=== PATIENT | male | born 1985 | race Caucasian/White ===

== ENCOUNTER → 2017-08-11 | Outpatient (CLI) | payer BC ==
[~2017-08-11] MED LIST: LEVO50TA PO
[2017-08-11 14:39] LABS: BASO % 0.6 %; BASO ABS # 0.03 K/uL (0-0.2); COMPLETE YES; EOS % 2.9 %; HEMATOCRIT 42.5 % (42-52); IG% 0.2 %; LYMPH % 46.9 %; LYMPH ABS # 2.26 K/uL (1.2-3.4); MEAN CELL VOLUME 87.6 fL (80-100); MEAN CORPUSCULAR HEMOGLOBIN 30.5 pg (25-34); MEAN CORPUSCULAR HGB CONC 34.8 g/dl (32-36); MEAN PLATELET VOLUME 10.1 fL (7.4-10.4); NEUT % 43.4 %; PLATELET COUNT 231 K/uL (130-400); RED BLOOD COUNT 4.85 M/uL (4.7-6.1); WHITE BLOOD COUNT 4.82 K/uL (4.8-10.8)
[2017-08-11 15:07] LABS: BLOOD UREA NITROGEN 12 mg/dl (7-18); BUN/CREATININE RATIO 13.1 (10-20); CALCIUM 9.2 mg/dl (8.5-10.1); CARBON DIOXIDE 29 mmol/L (21-32); CHLORIDE 105 mmol/L (98-107); CREATININE 0.93 mg/dl (0.60-1.40); GLUCOSE 98 mg/dl (70-99); POTASSIUM 3.6 mmol/L (3.5-5.1); SODIUM 140 mmol/L (136-145)
[2017-08-11 15:12] LABS: ALB/GLOB RATIO 1.1 (0.9-2); ALKALINE PHOSPHATASE 51 U/L (45-117); ALT/SGPT 190 U/L (12-78); AST/SGOT 83 U/L (15-37); FERRITIN 505.7 ng/ml (8.0-388.0)
[2017-08-12 04:43] LABS: ESTIMATED AVERAGE GLUCOSE 111 mg/dl; HA1C FLAG Normal (Normal)
[2017-08-16 23:38] LABS: T3 REVERSE **TC 90963 27 ng/dL (8-25)
--- NOTE | 2017-08-25 10:23 | CODING QUERY MEDICAL NECESSITY ---
CQSUPPORTING DIAGNOSIS NEEDED A supporting diagnosis is required for the test/procedure performed on this patient in order for us to be reimbursed by the patient's insurance. Please provide a supporting diagnosis for the following test/procedure listed below next to the test name along with your signature. *If there is no additional diagnosis for this patient that would support the following test/procedure please document that below next to the test/procedure. Test(s)/Procedure(s) that require a supporting diagnosis: CARLI 08/11/17 GLYCATEDHEMOGLOBIN TEST SERUM IRON STUDY Provider Signature: Date: Thank you Garden[facility] Information [facility] Once completed, please kindly fax back to [phone] For questions please call [phone]
== END | disposition home or self-care (01) ==
LOC: C.LAB 14:01
PROVIDERS: ATTEND Chiropractor
DX: M79.1 Myalgia (principal); E89.0 Postprocedural hypothyroidism

== ENCOUNTER → 2018-01-13 | Outpatient (CLI) | payer OTHER | END | disposition home or self-care (01) | LOC: C.LAB1850 15:09 | PROVIDERS: ATTEND Physician Assistant | DX: E89.0 Postprocedural hypothyroidism (principal) ==

== ENCOUNTER 2019-06-12 11:10 | Inpatient (IN) ==
--- OUTSIDE RECORDS SUMMARY | 2019-06-12 11:14 | External Medical Summary | Continuity of Care Document ---
:1985 Author Name Marissa Lopez, Provider Address Unavailable Unavailable , Care Team Providers Name Role Phone Unavailable Unavailable Unavailable Madison TAPIA, Rj Unavailable 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 Refills: 0 Albuterol Sulfate (2.5 MG/3ML) 0.083% In halation Nebulization Solution; USE DIRECTED. , M.D. Refills: 0 Tirosint 150 MCG Oral Capsule; Take one tablet daily on an empty stomach with a glass of water 30-60 minutes before any other food, drinks or medications. WILLIE Wallace Start: 22-Jul-2016 Quantity: 90 Refills: 3 Procedures History of Dental Surgery Status: Comple parth History of Nasal Septal Deviation Repair Status: Completed History of Thyroid Surgery George-Thyroidectomy Left Lobe Status: Completed Immunizations Tdap (Adacel) On: 22-Sep-2011 Family History Mother Family history of celiac disease (V18.59) (Z83.79) Status: A ctive Sister Family history of celiac disease (V18.59) (Z83.79) Status: A ctive Father Family history of diabetes mellitus (V18.0) (Z83.3) Status: Active Family history of hypertension (V17.49) (Z82.49) Status: Act hong Unknown Family Member Family history of malignant neoplasm of brain Status: Active Comments: Family History (V16.8) (Z80.8) Family history of lung cancer (V16.1) (Z80.1) Status: Active Comments: Family History Social History - Smoking Status Never smoker Plan of Treatment Planned Observations Planned Goals not documented Results No Known Results Results not documented Encounters Appointment; Rj Wallace PA-C 13-Jan-2018 14:10 Encounter Diagnosis: Problem not documented Appointment; Rj Wallace PA-C 13-Jul-2017 9:50 Encounter Diagnosis: Problem not documented Appointment; Rj Wallace PA-C 23-Jun-2017 8:30 Encounter Diagnosis: Problem not documented
[2019-06-12] MEDS ORDERED: METOPROLOL TARTRATE 1 MG/ML VIAL IV PRN ×2 (11:29→13:24)
[2019-06-12] MEDS ORDERED: SODIUM CHLORIDE 0.9% 1000ML 1,000 ML IV SCH (11:30)
[2019-06-12 11:47] LABS: Basophils # (auto) 0.03 K/uL (0-0.2); Basophils % (auto) 0.4 %; Eosinophils # (auto) 0.12 K/uL (0-0.5); Eosinophils % (auto) 1.4 %; Hemoglobin 16.6 g/dL (14.0-18.0); Immature Granulocytes # (auto) 0.01 K/uL (0.00-0.02); Immature Granulocytes % (auto) 0.1 %; Lymphocytes # (auto) 3.13 K/uL (1.2-3.4); Lymphocytes % (auto) 36.7 %; Mean Corpuscular Hgb Conc 36.1 g/dL (32-36); Mean Corpuscular Volume 86.3 fL (80-100); Mean Platelet Volume 10.4 fL (7.4-10.4); Monocytes # (auto) 0.61 K/uL (0.11-0.59); Monocytes % (auto) 7.2 %; Neutrophils # (auto) 4.62 K/uL (1.4-6.5); Neutrophils % (auto) 54.2 %; Platelet Count 225 K/uL (130-400); RDW Coefficient of Variation 12.3 % (11.5-14.5); RDW Standard Deviation 38.9 fL (36.4-46.3); Red Blood Count 5.33 M/uL (4.7-6.1); White Blood Count 8.52 K/uL (4.8-10.8)
--- NOTE | 2019-06-12 11:50 | XRay Report ---
XR chest 1V portable HISTORY: 34 years-old Male Chest Pain acute atypical chest pain COMPARISON: Chest radiograph 05/10/2016 TECHNIQUE: Portable AP view of the chest FINDINGS: Cardiomediastinal and hilar silhouettes are within normal limits. Unchanged mild right hemidiaphragma tic elevation. No pneumothorax, pleural effusion, focal airspace consolidation or overt pulmonary richard ma. Bones of the chest appear grossly intact. IMPRESSION: No acute process. The above report was generated using voice recognition software. It may contain grammatical, syntax o r spelling errors. Electronically signed by: Wyatt Allison M.D. 06/12/2019 11:49 AM
[2019-06-12 12:03] LABS: Alanine Aminotransferase 46 U/L (12-78); Albumin Level 5.1 gm/dl (3.4-5.0); Aspartate Aminotransferase 26 U/L (15-37); Blood Urea Nitrogen 12 mg/dl (7-18); Calcium 9.3 mg/dl (8.5-10.1); Carbon Dioxide 23 mmol/L (21-32); Chloride 100 mmol/L (98-107); Creatinine Clr Calc Pharmacy 119.6 ml/min; Est GFR (African American) 103.7; Est GFR (Non-African American) 89.5; Glucose 81 mg/dl (70-99); Potassium 3.2 mmol/L (3.5-5.1); Sodium 138 mmol/L (136-145)
[2019-06-12 12:08] LABS: Albumin Globulin Ratio 1.5 (0.9-2); Alkaline Phosphatase 53 U/L (45-117); Bilirubin,Total 1.4 mg/dl (0.2-1); Creatine Kinase 330 U/L (39-308); Creatine Kinase MB < 1.0 ng/ml (0.5-3.6); Globulin 3.4 gm/dl (2.5-4.0); Total Protein 8.5 gm/dl (6.4-8.2); Troponin I 0.019 ng/ml (0-0.045)
[2019-06-12] MEDS ORDERED: POTASSIUM CHLORIDE 20 MEQ TABCR PO STA ×2 (12:09→13:24)
[2019-06-12] MEDS: POTASSIUM CHLORIDE / WTR 10 MEQ/100 ML PLCT IV SCH ×2 (12:14→13:50)
[2019-06-12] MEDS ORDERED: FAMOTIDINE 20 MG TAB PO STA (12:22)
[2019-06-12] MEDS ORDERED: ONDANSETRON INJ 2 MG/ML 2 ML VIAL IV STA (12:22)
[2019-06-12] MEDS ORDERED: GI COCKTAIL ED USE PO ONE (12:22)
[2019-06-12 13:19] LABS: INR 1.1 (0.9-1.1); Partial Thromboplastin Time 27.6 Seconds (21.0-31.0); Prothrombin Time 11.4 Seconds (9.0-12.0)
--- NOTE | 2019-06-12 13:21 | History & Physical Report ---
Date of Service June 12, 2019 Assessment & Plan (1) Atrial fibrillation with RVR: Presented with palpitation and noted to have atrial fibrillation with RVR History of atrial fibrillation with spontaneous reversion to sinus rhythm Did have some chest pain/pressure during this presentation We will start with intravenous beta-sarah as needed to control the rate Initial troponin negative Will get serial cardiac enzymes Echocardiogram to evaluate function Cardiology consult Present on Admission?: Yes (2) Celiac disease: History of celiac disease under care of [facility] guidance services coordinator Recently has been following the diet Continuing to have diarrhea We will put him on a gluten-free diet (3) Electrolyte imbalance: Secondary to ongoing diarrhea Potassium has been placed Atrial fibrillation in the hospital Present on Admission?: Yes (4) Hypothyroidism: Placement DVT prophylaxis SCDs CODE STATUS Full History of Present Illness Chief Complaint: Diarrhea for the last 1 week and palpitations since this morning Primary Care Provider: [facility] He is a 34-year-old male without significant past medical history except hypothyroidism and celiac disease apparently has been complaining of ongoing diarrhea for the last 1 week or so secondary to dietary discretion. He has been losing weight secondary to ongoing diarrhea and since this morning he complained to have palpitation associated with some chest tightness and minimal shortness of breath. He complained of some abdominal discomfort, but no pain and did not have any nausea and/or vomiting. He complains to have significant weight loss for the last 1 to 2 weeks. He has a history of proximal atrial fibrillation and during the last 10 years he has had 2 or 3 episodes of atrial fibrillation and all of which converted to sinus rhythm by itself. He had an echo done about 10 years ago which was unremarkable as per the patient. His celiac disease seems to be under control but recently while in the nursing home he has been following with the diet that he supposed to be which is causing him to have ongoing diarrhea and weight loss. The ER he was noted to have low blood pressure of systolic less than 90 and a heart rate of 107. His initial troponin was negative, he was admitted to telemetry unit for continuation of care. 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 Industrial Required: No Beliefs That Will Affect Care: None Current Living Situation: Other Feels Safe at Home: Yes Safety Concerns: Feels Safe At This Time Smoking Status: Never smoker Hx Alcohol Use: No Hx Substance Use: No Review of Systems Review of Systems: All systems reviewed & are unremarkable except as noted in HPI & below Physical Exam Physical Exam: No apparent distress at rest Constitutional: well developed and well nourished Eyes: PERRL, conjunctivae normal, anicteric sclerae ENMT: external ear and nose normal, oropharynx normal Neck: trachea midline, no thyromegaly Respiratory: normal respiratory effort; no respiratory distress Auscultation: lungs clear to auscultation bilaterally Cardiovascular: Rate/Rhythm: + tachycardic; + abnormal rate and + abnormal rhythm Gastrointestinal (Abdomen): Inspection/Auscultation: abdomen normal to inspection Percussion/Palpation: + abdomen tender (Mildly tender epigastrium) and abdomen soft; no guarding, abdomen not rigid and no hepatosplenomegaly Musculoskeletal: No acute arthritis in any joints Skin: Minor patch of dry skin lesions behind the elbows Neurologic: patellar DTR's 2+ bilat, sensation intact Psychiatric: A+Ox3, euthymic affect Genitourinary: no CVA tenderness Lymphatic: no cervical or axillary lymphadenopathy Results & Data Vital Signs (Past 12 Hours) Vital Signs Temp Pulse Resp BP Pulse Ox 06/12/19 12:01 107 H 16 86/70 L 97 06/12/19 12:00 169 H 22 06/12/19 11:59 160 H 151/84 H 06/12/19 11:50 168 H 18 94 06/12/19 11:40 154 H 15 98 06/12/19 11:31 170 H 14 151/84 H 96 06/12/19 11:30 158 H 23 95 06/12/19 11:28 173 H 18 98 06/12/19 11:20 171 H 24 98 06/12/19 11:19 172 H 22 06/12/19 11:15 36.6 C 162 H 21 166/91 H 98 Laboratory Results Short CBC 06/12/19 Range/Units 11:38 WBC 8.52 (4.8-10.8) K/uL Hgb 16.6 (14.0-18.0) g/dL Hct 46.0 (42-52) % Plt Count 225 (130-400) K/uL BMP 06/12/19 11:38 Sodium 138 Potassium 3.2 L Chloride 100 Carbon Dioxide 23 BUN 12 Creatinine 1.07 Glucose 81 Calcium 9.3 Cardiac Enzymes 06/12/19 Range/Units 11:38 Total Creatine Kinase 330 H (39-308) U/L CK-MB (CK-2) < 1.0 (0.5-3.6) ng/ml Troponin I 0.019 (0-0.045) ng/ml Liver Function 06/12/19 Range/Units 11:38 Total Bilirubin 1.4 H (0.2-1) mg/dl AST 26 (15-37) U/L ALT 46 (12-78) U/L Alkaline Phosphatase 53 (45-117) U/L Albumin 5.1 H (3.4-5.0) gm/dl Medications Administered Current Inpatient Medications Potassium Chloride (K Vini / Wtr) 10 meq in 100 mls @ 100 mls/hr IV Q1H [id number] Stop: 06/12/19 14:14 Last Admin: 06/12/19 12:14 Dose: 100 mls/hr Documented by: Metoprolol Tartrate (Lopressor) 5 mg IV Q5M PRN PRN Reason: Tachycardia Stop: 07/12/19 11:28 Last Admin: 06/12/19 11:59 Dose: 5 mg Documented by:
--- NOTE | 2019-06-12 14:58 | Emergency Department Note ---
Entered by Lorena Orozco acting as a scribe for Miguel Armenta MD History of Present Illness General Chief complaint: Arrhythmia/Palpitations Time Seen by Provider: 06/12/19 11:19 Source: patient History of Present Illness Provider complaint: palpitations Onset (ago): hour(s) (this morning ) Location: chest Severity: similar to prior episodes Pain Consistency: + other (episode) Associated symptoms: + chest pain and + shortness of breath The patient is a 34 year old male who presents to the Emergency Room with complaints of episode of palpitations this morning. The patient states that he woke up this morning and he felt a "flutter" in his chest. He reports that he has a history of atrial fibrillation, he notes that his last episode was 10 year s ago. The patient states that he is experiencing chest pain and shortness of breath. He notes that he was in the ED for similar symptoms where the docket clerk believed his A fib was due to his celiac disease. He states that when he was here he was cardioverted. He notes that he has a history of hy pothyroidism. He states that he is a nonsmoker. Home Medications Home Medications Medication Instructions Recorded Confirmed Type cetirizine 10 mg PO HS 06/12/19 06/12/19 History cholecalciferol (vitamin D3) 2,000 unit PO HS 06/12/19 06/12/19 History [Vitamin D3] levothyroxine 125 mcg PO QAM 06/12/19 06/12/19 History naproxen 375 mg PO BID PRN 06/12/19 06/12/19 History Allergies Allergy/AdvReac Type Severity Reaction Status Date / Time gluten Allergy Unknown GLUTEN Verified 06/12/19 11:24 SENSITIVITY Past Med/Surg History Medical History Hypothyroidism (Chronic) Atrial fibrillation Celiac disease GERD (gastroesophageal reflux disease) HLD (hyperlipidemia) Social History Preferred Language: Latvian [employer] Specialist Required: No Beliefs That Will Affect Care: None Current Living Situation: Other Feels Safe at Home: Yes Safety Concerns: Feels Safe At This Time Smoking Status: Never smoker Hx Alcohol Use: No Hx Substance Use: No Review of Systems See HPI for pertinent positives & negatives. and A total of 10 systems reviewed and were otherwise negative Physical Exam Vital Signs Vital Signs - 24 hr 06/12/19 11:15 06/12/19 11:19 06/12/19 11:20 Temperature 36.6 C Temperature Source Oral Sepsis Recent Fever Within 48 Hours No Sepsis New/Unexplained Change in Mental Status No Sepsis Action Taken by Nursing No Action Required Pulse Rate 162 H 172 H 171 H Pulse Rate from SpO2 Sensor 156 H Pulse Rhythm Irregular Pulse Strength Normal Respiratory Rate 21 22 24 Respiratory Effort / Characteristics Non-Labored Spontaneous Respiratory Depth Normal Respiratory Pattern Regular Blood Pressure 166/91 H Blood Pressure Mean 116 Blood Pressure Position Lying Pulse Oximetry 98 98 Oxygen Delivery Method Room Air Room Air Room Air 06/12/19 11:28 06/12/19 11:30 06/12/19 11:31 Temperature Temperature Source Sepsis Recent Fever Within 48 Hours Sepsis New/Unexplained Change in Mental Status Sepsis Action Taken by Nursing Pulse Rate 173 H 158 H 170 H Pulse Rate from SpO2 Sensor 92 H 139 H Pulse Rhythm Pulse Strength Respiratory Rate 18 23 14 Respiratory Effort / Characteristics Respiratory Depth Respiratory Pattern Blood Pressure 151/84 H Blood Pressure Mean 106 Blood Pressure Position Pulse Oximetry 98 95 96 Oxygen Delivery Method Room Air Room Air Room Air 06/12/19 11:40 06/12/19 11:50 06/12/19 11:59 Temperature Temperature Source Sepsis Recent Fever Within 48 Hours Sepsis New/Unexplained Change in Mental Status Sepsis Action Taken by Nursing Pulse Rate 154 H 168 H 160 H Pulse Rate from SpO2 Sensor 89 117 H Pulse Rhythm Pulse Strength Respiratory Rate 15 18 Respiratory Effort / Characteristics Respiratory Depth Respiratory Pattern Blood Pressure 151/84 H Blood Pressure Mean Blood Pressure Position Pulse Oximetry 98 94 Oxygen Delivery Method Room Air Room Air 06/12/19 12:00 06/12/19 12:01 06/12/19 12:02 Temperature Temperature Source Sepsis Recent Fever Within 48 Hours Sepsis New/Unexplained Change in Mental Status Sepsis Action Taken by Nursing Pulse Rate 169 H 107 H 107 H Pulse Rate from SpO2 Sensor 82 81 Pulse Rhythm Pulse Strength Respiratory Rate 22 16 13 Respiratory Effort / Characteristics Respiratory Depth Respiratory Pattern Blood Pressure 86/70 L Blood Pressure Mean 75 Blood Pressure Position Pulse Oximetry 97 99 Oxygen Delivery Method Room Air Room Air 06/12/19 12:08 06/12/19 12:10 06/12/19 12:11 Temperature Temperature Source Sepsis Recent Fever Within 48 Hours Sepsis New/Unexplained Change in Mental Status Sepsis Action Taken by Nursing Pulse Rate 122 H 92 H 122 H Pulse Rate from SpO2 Sensor 86 80 83 Pulse Rhythm Pulse Strength Respiratory Rate 14 10 L 14 Respiratory Effort / Characteristics Respiratory Depth Respiratory Pattern Blood Pressure 99/78 L 100/75 Blood Pressure Mean 85 83 Blood Pressure Position Pulse Oximetry 94 99 97 Oxygen Delivery Method 06/12/19 12:15 06/12/19 12:20 06/12/19 12:21 Temperature Temperature Source Sepsis Recent Fever Within 48 Hours Sepsis New/Unexplained Change in Mental Status Sepsis Action Taken by Nursing Pulse Rate 116 H 116 H 123 H Pulse Rate from SpO2 Sensor 91 H 97 H 89 Pulse Rhythm Pulse Strength Respiratory Rate 19 17 31 H Respiratory Effort / Characteristics Respiratory Depth Respiratory Pattern Blood Pressure 113/86 113/75 Blood Pressure Mean 95 87 Blood Pressure Position Pulse Oximetry 98 100 99 Oxygen Delivery Method 06/12/19 12:25 06/12/19 12:30 06/12/19 12:31 Temperature Temperature Source Sepsis Recent Fever Within 48 Hours Sepsis New/Unexplained Change in Mental Status Sepsis Action Taken by Nursing Pulse Rate 112 H 108 H 115 H Pulse Rate from SpO2 Sensor 83 101 H 86 Pulse Rhythm Pulse Strength Respiratory Rate 16 20 18 Respiratory Effort / Characteristics Respiratory Depth Respiratory Pattern Blood Pressure 80/71 L 137/86 Blood Pressure Mean 74 103 Blood Pressure Position Pulse Oximetry 95 97 97 Oxygen Delivery Method 06/12/19 12:35 06/12/19 12:40 06/12/19 12:41 Temperature Temperature Source Sepsis Recent Fever Within 48 Hours Sepsis New/Unexplained Change in Mental Status Sepsis Action Taken by Nursing Pulse Rate 136 H 121 H 126 H Pulse Rate from SpO2 Sensor 99 H 92 H Pulse Rhythm Pulse Strength Respiratory Rate 12 14 15 Respiratory Effort / Characteristics Respiratory Depth Respiratory Pattern Blood Pressure 106/82 125/87 Blood Pressure Mean 90 99 Blood Pressure Position Pulse Oximetry 95 94 Oxygen Delivery Method 06/12/19 12:45 06/12/19 12:50 Temperature Temperature Source Sepsis Recent Fever Within 48 Hours Sepsis New/Unexplained Change in Mental Status Sepsis Action Taken by Nursing Pulse Rate 125 H 133 H Pulse Rate from SpO2 Sensor 83 83 Pulse Rhythm Pulse Strength Respiratory Rate 15 14 Respiratory Effort / Characteristics Respiratory Depth Respiratory Pattern Blood Pressure 136/84 106/75 Blood Pressure Mean 101 85 Blood Pressure Position Pulse Oximetry 93 98 Oxygen Delivery Method GENERAL: Awake, alert, well-appearing, in no acute distress HENT: Normocephalic, atraumatic. Oropharynx unremarkable. EYES: Normal conjunctiva. Sclera non-icteric. NECK: Supple. No nuchal rigidity. FROM. No JVD. RESPIRATORY: Clear to auscultation. CARDIAC: Regular rate, normal rhythm. Extremities warm and well perfused. Pulses equal. ABDOMEN: Soft, non-distended. No tenderness to palpation. No rebound or guarding. No masses. RECTAL: Deferred. MUSCULOSKELETAL: Chest examination reveals no tenderness. The back is symme trical on inspection without obvious abnormality. There is no CVA tenderness to palpation. No joint edema. LOWER EXTREMITIES: Calves are equal size bilaterally and non-tender. No edema. No discoloration. NEURO: Normal sensorium. No sensory or motor deficits noted. SKIN: No rash or jaundice noted. Course 1123: The patient was evaluated in room C10, and a complete history and physical examination were performed. 1217: I reviewed the patient's case with Erica Linton, Dr. Efrain Linton Hospitalist will further evaluate the patient. Consultations Consultation #1: Dr. Efrain Linton Hospitalist Time: 12:17 Administered Medications Cetirizine HCl (Zyrtec) 10 mg PO HS KHADIJAH Stop: 07/12/19 20:59 Last Admin: 06/14/19 20:30 Dose: 10 mg Documented by: [id number] Admin: 06/13/19 21:35 Dose: 10 mg Documented by: [id number] Admin: 06/12/19 20:02 Dose: 10 mg Documented by: [id number] Al Hydrox/Mg Hydrox/Simethicone 72 ml/ Lidocaine HCl 24 ml/ BARCODE IDENTIFIER 1 ea 0 ml PO BID PRN PRN Reason: Dyspepsia Stop: 07/13/19 13:25 Last Admin: 06/14/19 20:35 Dose: 24 ml Documented by: [id number] Admin: 06/14/19 14:26 Dose: 24 ml Documented by: [id number] Admin: 06/13/19 21:35 Dose: 24 ml Documented by: [id number] Levothyroxine Sodium (Synthroid) 125 mcg PO DAILYBB KHADIJAH Stop: 07/12/19 14:23 Last Admin: 06/15/19 06:00 Dose: 125 mcg Documented by: [id number] Admin: 06/14/19 07:21 Dose: 125 mcg Documented by: [id number] Admin: 06/13/19 07:53 Dose: 125 mcg Documented by: [id number] Admin: 06/12/19 15:30 Dose: Not Given Documented by: [id number] Loperamide HCl (Imodium) 2 mg PO Q4H PRN PRN Reason: Diarrhea Stop: 07/12/19 18:06 Last Admin: 06/12/19 18:38 Dose: 2 mg Documented by: [id number] Metoprolol Succinate (Toprol Xl) 25 mg PO QAM [facility] Stop: 07/13/19 09:44 Last Admin: 06/14/19 07:22 Dose: 25 mg Documented by: [id number] Admin: 06/13/19 10:29 Dose: 25 mg Documented by: [id number] Vitamin D (Vitamin D3) 2,000 units PO HS [facility] Stop: 07/12/19 20:59 Last Admin: 06/14/19 20:31 Dose: 2,000 units Documented by: [id number] Admin: 06/13/19 21:35 Dose: 2,000 units Documented by: [id number] Admin: 06/12/19 20:02 Dose: 2,000 units Documented by: [id number] Discontinued Medications Al Hydrox/Mg Hydrox/Simethicone () 1 dose PO ONE ONE Stop: 06/12/19 12:23 Last Admin: 06/12/19 12:36 Dose: 1 dose Documented by: [id number] Al Hydrox/Mg Hydrox/Simethicone 72 ml/ Lidocaine HCl 24 ml/ BARCODE IDENTIFIER 1 ea 0 ml PO TID PRN PRN Reason: Dyspepsia Stop: 07/12/19 15:07 Last Admin: 06/13/19 13:22 Dose: 24 ml Documented by: [id number] Admin: 06/13/19 00:49 Dose: 96 ml Documented by: [id number] Famotidine (Pepcid) 20 mg PO NOW STA Stop: 06/12/19 12:23 Last Admin: 06/12/19 12:36 Dose: 20 mg Documented by: [id number] Sodium Chloride (Nss 1000ml) 1,000 mls @ 999 mls/hr IV .Q1H1M KHADIJAH Stop: 06/12/19 12:30 Last Infusion: 06/12/19 13:51 Dose: 0 mls/hr Documented by: [id number] Admin: 06/12/19 11:59 Dose: 999 mls/hr Documented by: [id number] Potassium Chloride (K Vini / Wtr) 10 meq in 100 mls @ 100 mls/hr IV Q1H KHADIJAH Stop: 06/12/19 14:14 Last Infusion: 06/12/19 15:00 Dose: 0 mls/hr Documented by: [id number] Admin: 06/12/19 13:50 Dose: 100 mls/hr Documented by: [id number] Infusion: 06/12/19 13:49 Dose: 0 mls/hr Documented by: [id number] Admin: 06/12/19 12:14 Dose: 100 mls/hr Documented by: [id number] Potassium Chloride/Sodium Chloride (Normal Saline W/20 Meq Kcl) 20 meq in 1,000 mls @ 100 mls/hr IV .Q10H KHADIJAH Stop: 06/13/19 20:29 Last Infusion: 06/13/19 21:37 Dose: 0 mls/hr Documented by: [id number] Admin: 06/13/19 11:59 Dose: 100 mls/hr Documented by: [id number] Infusion: 06/13/19 10:43 Dose: 100 mls/hr Documented by: [id number] Admin: 06/13/19 00:43 Dose: 100 mls/hr Documented by: [id number] Infusion: 06/13/19 00:43 Dose: 100 mls/hr Documented by: [id number] Admin: 06/12/19 15:11 Dose: 100 mls/hr Documented by: [id number] Lidocaine HCl (Xylocaine 2%) Confirm Administered Dose 2 ml INFIL .STK-MED ONE Stop: 06/14/19 12:36 Last Admin: 06/14/19 12:56 Dose: 2 ml Documented by: [id number] Lorazepam (Ativan) 0.5 mg PO NOW STA Stop: 06/13/19 21:54 Last Admin: 06/13/19 22:19 Dose: 0.5 mg Documented by: [id number] Metoprolol Tartrate (Lopressor) 5 mg IV Q5M PRN PRN Reason: Tachycardia Stop: 07/12/19 11:28 Last Admin: 06/12/19 11:59 Dose: 5 mg Documented by: [id number] Metoprolol Tartrate (Lopressor) 25 mg PO NOW STA Stop: 06/12/19 15:11 Last Admin: 06/12/19 15:42 Dose: 25 mg Documented by: [id number] Metoprolol Tartrate (Lopressor) 25 mg PO BID KHADIJAH Stop: 07/12/19 20:59 Last Admin: 06/13/19 07:54 Dose: 25 mg Documented by: [id number] Admin: 06/12/19 20:01 Dose: 25 mg Documented by: [id number] Ondansetron HCl (Zofran) 4 mg IV NOW STA Stop: 06/12/19 12:23 Last Admin: 06/12/19 12:36 Dose: 4 mg Documented by: [id number] Perflutren Lipid Microsphere (Definity) 2 ml IV ONCE ONE Stop: 06/12/19 15:27 Last Admin: 06/12/19 15:27 Dose: 2 ml Documented by: [id number] Polyethylene Glycol (Miralax Powder Packet) 238 gm PO TODAY@1600 KHADIJAH Stop: 06/15/19 03:30 Last Admin: 06/14/19 17:23 Dose: 238 gm Documented by: [id number] Potassium Chloride (Klor-Con M20) 40 meq PO NOW STA Stop: 06/12/19 12:10 Last Admin: 06/12/19 12:14 Dose: 40 meq Documented by: [id number] Potassium Chloride (Klor-Con M20) 40 meq PO NOW STA Stop: 06/12/19 13:25 Last Admin: 06/12/19 15:49 Dose: 40 meq Documented by: [id number] Potassium Chloride (Klor-Con M20) 20 meq PO NOW STA Stop: 06/13/19 09:27 Last Admin: 06/13/19 10:30 Dose: 20 meq Documented by: [id number] Propofol (Diprivan) Confirm Administered Dose 200 mg IV .STK-MED ONE Stop: 06/14/19 12:36 Last Admin: 06/14/19 12:58 Dose: Not Given Documented by: [id number] Propofol (Diprivan) Confirm Administered Dose 200 mg IV .STK-MED ONE Stop: 06/14/19 12:36 Last Admin: 06/14/19 14:06 Dose: Not Given Documented by: [id number] Medical Decision Making Differential Diagnosis Differential diagnosis: Etiologies such as cardiac ischemia, aortic dissection, pulmonary embolism, pneumonia, pneumothorax, musculoskeletal, infections, pe ricarditis, myocarditis, esophageal rupture, gastrointestinal, as well as others were entertained. Medical Records Attestation: I reviewed the patient's medical records. Home Medications Current Medication List: was personally reviewed by me Laboratory Data Attestation: I reviewed the patient's lab results. Result diagrams: 06/13/19 05:33 06/15/19 05:47 Lab Results 06/12/19 06/12/19 06/12/19 Range/Units 11:36 11:38 11:38 WBC 8.52 (4.8-10.8) K/uL RBC 5.33 (4.7-6.1) M/uL Hgb 16.6 (14.0-18.0) g/dL POC Hgb 16.3 (14.0-18.0) g/dl Hct 46.0 (42-52) % POC Hct 48 (42-52) % MCV 86.3 (80-100) fL MCH 31.1 (25-34) pg MCHC 36.1 H (32-36) g/dL RDW Std Deviation 38.9 (36.4-46.3) fL RDW Coeff of Sondra 12.3 (11.5-14.5) % Plt Count 225 (130-400) K/uL MPV 10.4 (7.4-10.4) fL Immature Gran % (Auto) 0.1 % Neut % (Auto) 54.2 % Lymph % (Auto) 36.7 % [place] % (Auto) 7.2 % Eos % (Auto) 1.4 % Baso % (Auto) 0.4 % Immature Gran # (Auto) 0.01 (0.00-0.02) K/uL Neut # (Auto) 4.62 (1.4-6.5) K/uL Lymph # (Auto) 3.13 (1.2-3.4) K/uL [place] # (Auto) 0.61 H (0.11-0.59) K/uL Eos # (Auto) 0.12 (0-0.5) K/uL Baso # (Auto) 0.03 (0-0.2) K/uL POC Sodium 140 (135-144) mEq/L Sodium 138 (136-145) mmol/L POC Potassium 3.5 (3.3-5.0) mEq/L Potassium 3.2 L (3.5-5.1) mmol/L POC Chloride 100 L (101-112) mEq/L Chloride 100 (98-107) mmol/L Carbon Dioxide 23 (21-32) mmol/L POC Total CO2 22 L (24-31) mEq/l Anion Gap 15.0 H (3-11) POC Anion Gap 22.0 (16-25) mmol/L POC BUN 12 (7-18) mg/dl BUN 12 (7-18) mg/dl Creatinine 1.07 (0.6-1.4) mg/dl POC Creatinine 0.9 (0.6-1.3) mg/dl Est Cr Clr Drug Dosing 119.6 ml/min Est GFR ( Amer) 103.7 Est GFR (Non-Af Amer) 89.5 BUN/Creatinine Ratio 11.0 (10-20) Glucose 81 (70-99) mg/dl POC Glucose (other) 83 (70-99) mg/dl Calcium 9.3 (8.5-10.1) mg/dl POC Ioniz Calcium Racquel 1.13 (1.12-1.32) mmol/l Magnesium (1.8-2.4) mg/dl Total Bilirubin 1.4 H (0.2-1) mg/dl AST 26 (15-37) U/L ALT 46 (12-78) U/L Alkaline Phosphatase 53 (45-117) U/L Total Creatine Kinase 330 H (39-308) U/L CK-MB (CK-2) < 1.0 (0.5-3.6) ng/ml CK/CKMB % Calc TNP Troponin I 0.019 (0-0.045) ng/ml Total Protein 8.5 H (6.4-8.2) gm/dl Albumin 5.1 H (3.4-5.0) gm/dl Globulin 3.4 (2.5-4.0) gm/dl Albumin/Globulin Ratio 1.5 (0.9-2) Lipase 89 (73-393) U/L 06/12/19 Range/Units 11:38 WBC (4.8-10.8) K/uL RBC (4.7-6.1) M/uL Hgb (14.0-18.0) g/dL POC Hgb (14.0-18.0) g/dl Hct (42-52) % POC Hct (42-52) % MCV (80-100) fL MCH (25-34) pg MCHC (32-36) g/dL RDW Std Deviation (36.4-46.3) fL RDW Coeff of Sondra (11.5-14.5) % Plt Count (130-400) K/uL MPV (7.4-10.4) fL Immature Gran % (Auto) % Neut % (Auto) % Lymph % (Auto) % [place] % (Auto) % Eos % (Auto) % Baso % (Auto) % Immature Gran # (Auto) (0.00-0.02) K/uL Neut # (Auto) (1.4-6.5) K/uL Lymph # (Auto) (1.2-3.4) K/uL [place] # (Auto) (0.11-0.59) K/uL Eos # (Auto) (0-0.5) K/uL Baso # (Auto) (0-0.2) K/uL POC Sodium (135-144) mEq/L Sodium (136-145) mmol/L POC Potassium (3.3-5.0) mEq/L Potassium (3.5-5.1) mmol/L POC Chloride (101-112) mEq/L Chloride (98-107) mmol/L Carbon Dioxide (21-32) mmol/L POC Total CO2 (24-31) mEq/l Anion Gap (3-11) POC Anion Gap (16-25) mmol/L POC BUN (7-18) mg/dl BUN (7-18) mg/dl Creatinine (0.6-1.4) mg/dl POC Creatinine (0.6-1.3) mg/dl Est Cr Clr Drug Dosing ml/min Est GFR ( Amer) Est GFR (Non-Af Amer) BUN/Creatinine Ratio (10-20) Glucose (70-99) mg/dl POC Glucose (other) (70-99) mg/dl Calcium (8.5-10.1) mg/dl POC Ioniz Calcium Racquel (1.12-1.32) mmol/l Magnesium 2.3 (1.8-2.4) mg/dl Total Bilirubin (0.2-1) mg/dl AST (15-37) U/L ALT (12-78) U/L Alkaline Phosphatase (45-117) U/L Total Creatine Kinase (39-308) U/L CK-MB (CK-2) (0.5-3.6) ng/ml CK/CKMB % Calc Troponin I (0-0.045) ng/ml Total Protein (6.4-8.2) gm/dl Albumin (3.4-5.0) gm/dl Globulin (2.5-4.0) gm/dl Albumin/Globulin Ratio (0.9-2) Lipase (73-393) U/L Imaging Data Radiologist's Impression: Radiology results as stated below per my review and the radiologist's interpretation: XR chest 1V portable HISTORY: 34 years-old Male Chest Pain acute atypical chest pain COMPARISON: Chest radiograph 05/10/2016 TECHNIQUE: Portable AP view of the chest FINDINGS: Cardiomediastinal and hilar silhouettes are within normal limits. Unchanged mild right hemidiaphragmatic elevation. No pneumothorax, pleural effusion, focal airspace consolidation or overt pulmonary edema. Bones of the chest appear grossly intact. IMPRESSION: No acute process. The above report was generated using voice recognition software. It may contain grammatical, syntax or spelling errors. Electronically signed by: Wyatt Allison M.D. 06/12/2019 11:49 AM ECG Data Attestation: I personally reviewed and interpreted this ECG as follows: Indication: chest pain Rate (beats per minute): 164 Rhythm: atrial fibrillation (with rvr) Findings: + RBBB (incomplete); no ST depression and no ST elevation Blood Pressure Blood Pressure Findings: Low blood pressure Blood Pressure Disposition: further management by hospitalist [facility] Narrative This is a 34-year-old male who presents emergency department complaining of atrial fibrillation. I offered to cardiovert the patient here in the emergency department however he is refusing. Based on this I did discuss the case with the docket clerk who asked that the patient be admitted. He was given multiple doses of IV metoprolol in the emergency department to better rate control his atrial fibrillation. His troponin was found to be slightly elevated on his laboratory work. Patient was in agreement with the treatment plan. Impression & Plan Atrial fibrillation with RVR Critical Care Time I have personally spent greater than 30 minutes of critical care time in the direct management of this patient. This includes bedside care, interpretation of diagnostic studies, and testing, discussion with consultants, patient, and family members, and other required patient management activities. This 30 min utes is in excess of all separately billable procedures. Discharge Plan Visit Data *Final* Discharge Date/Time: 06/12/19 13:53 Chief Complaint: Arrhythmia/Palpitations ED Provider: Miguel Armenta Discharge Problem: Atrial fibrillation with RVR Patient Disposition: Admitted As Inpatient Discharge Instructions Interventions: ED Discharge Assessment Last Done: 06/12/19 13:53 The scribe's documentation has been prepared under my direction and personally reviewed by me in its entirety. I confirm that the note above accurately reflects all work, treatment, procedures, and medical decision making performed by me.
[2019-06-12] MEDS ORDERED: METOPROLOL TARTRATE 25 MG TAB PO STA (15:10)
[2019-06-12] MEDS: NSS + 20MEQ KCL 20 MEQ/1,000 ML BAG IV SCH (15:11)
[2019-06-12] MEDS: LEVOTHYROXINE SODIUM 125 MCG TABLET PO SCH ×2 (15:11→15:30)
--- NOTE | 2019-06-12 15:22 | Cardiology Consultation ---
Date of Consultation June 12, 2019 Assessment & Plan (1) Atrial fibrillation with RVR: (2) Electrolyte imbalance: (3) Hypothyroidism: This is patient's third or fourth episode of paroxysmal atrial fibrillation with rapid ventricular response dating back to 2007. Current episode likely related to dehydration, electrolyte imbalance in the setting of diarrhea x2 weeks. Agree with intravenous hydration and electrolyte replacement. Patient will be given 25 mg of oral metoprolol now followed by 25 mg twice daily. We discussed potential prescription of maintenance low-dose metoprolol to help curtail further episodes of atrial fibrillation. Further recommendations pending clinical course and clinical response to inpatient therapies. Resting 2D transthoracic echocardiogram pending at this time, however, prior echocardiograms within normal limits without evidence of structural abn ormalities, significant valvular disease, or left atrial enlargement. Patient's chads vas score is 0. Anticoagulation currently is not indicated, however, if cardioversion is necessary during hospitalization, anticoagulation would be warranted at that time. History of Present Illness Reason for Consultation: Paroxysmal atrial fibrillation Requesting Physician: Dr. Huggins Attending Physician: Norbert Huggins MD History of Present Illness Patient seen and examined at the bedside. Admitted with 2-week history of diarrhea and palpitations beginning this morning. Patient is currently incarcerated. Reports rapid heartbeats and associated chest discomfort. He came to the emergency department. ECG confirmed presence of atrial fibrillation with rapid ventricular response. This is the patient's third episode of atrial fibrillation which first occurred at age 23. Patient believes his episodes of atrial fibrillation are related to celiac disease and intake of gluten while in detention. Significant hypokalemia and volume depletion noted on admission. Denies orthopnea, PND, lower extremity edema, lightheadedness, dizziness, syncope, or near syncope. Prior cardiac work-up including echocardiogram, and extra size stress echocardiography May 2015 unremarkable. No history of valvular heart disease with normal left atrial dimensions. Medical history significant for thyroid nodule status post resection in 2014 and celiac sprue. 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 HEENT: Normocephalic. Atraumatic. Conjunctiva pink, no scleral icterus. Neck: No carotid bruits, the carotid upstrokes are brisk. No JVD. No HJR Heart: Regular normal S-1 and S-2 no S-3 or S-4 gallop. No murmurs or rub appreciated. PMI is not displaced. No RV heave. Lungs: Clear bilateral without rales , rhonchi, or wheeze. Abdomen: Normal bowel sounds. Soft. Nontender. No masses or organomegaly. No abdominal bruits. Extremities: No clubbing, cyanosis, or edema. Pulses: radial=2/4, Dorsalis pedis =2/4, posterior tibial=2/4. Neuro: Cranial nerves grossly intact. No focal motor deficit. Results & Data Vital Signs (Past 12 Hours) Vital Signs Temp Pulse Pulse Resp BP BP Pulse Ox 06/12/19 14:25 36.8 C 95 H 16 111/75 96 06/12/19 13:55 132 H 15 108/74 97 06/12/19 13:50 127 H 19 120/77 96 06/12/19 13:46 123 H 19 123/88 94 06/12/19 13:41 157 H 15 98 06/12/19 13:40 116 H 20 132/85 99 06/12/19 13:39 146 H 140 H 27 H 105/79 105/79 94 06/12/19 13:35 144 H 17 119/74 97 06/12/19 13:31 123 H 14 97 06/12/19 13:30 113 H 22 115/81 95 06/12/19 13:25 122 H 23 108/82 95 06/12/19 13:22 109/83 96 06/12/19 13:20 89 L 06/12/19 13:15 126 H 30 H 107/77 96 06/12/19 13:11 127 H 21 119/66 96 06/12/19 13:10 119 H 20 06/12/19 13:05 101 H 21 104/75 95 06/12/19 13:01 100 H 23 98 06/12/19 13:00 128 H 26 H 121/82 90 06/12/19 12:55 107 H 19 107/78 97 06/12/19 12:50 133 H 14 106/75 98 06/12/19 12:45 125 H 15 136/84 93 06/12/19 12:41 126 H 15 94 06/12/19 12:40 121 H 14 125/87 95 06/12/19 12:35 136 H 12 106/82 06/12/19 12:31 115 H 18 97 06/12/19 12:30 108 H 20 137/86 97 06/12/19 12:25 112 H 16 80/71 L 95 06/12/19 12:21 123 H 31 H 99 06/12/19 12:20 116 H 17 113/75 100 06/12/19 12:15 116 H 19 113/86 98 06/12/19 12:11 122 H 14 97 06/12/19 12:10 92 H 10 L 100/75 99 06/12/19 12:08 122 H 14 99/78 L 94 06/12/19 12:02 107 H 13 99 06/12/19 12:01 107 H 16 86/70 L 97 06/12/19 12:00 169 H 22 06/12/19 11:59 160 H 151/84 H 06/12/19 11:50 168 H 18 94 06/12/19 11:40 154 H 15 98 06/12/19 11:31 170 H 14 151/84 H 96 06/12/19 11:30 158 H 23 95 06/12/19 11:28 173 H 18 98 06/12/19 11:20 171 H 24 98 06/12/19 11:19 172 H 22 06/12/19 11:15 36.6 C 162 H 21 166/91 H 98 Laboratory Results Laboratory Results - last 24 hr 06/12/19 06/12/19 06/12/19 11:38 11:38 11:38 WBC 8.52 RBC 5.33 Hgb 16.6 Hct 46.0 MCV 86.3 MCH 31.1 MCHC 36.1 H RDW Std Deviation 38.9 RDW Coeff of Sondra 12.3 Plt Count 225 MPV 10.4 Immature Gran % (Auto) 0.1 Neut % (Auto) 54.2 Lymph % (Auto) 36.7 Colleton % (Auto) 7.2 Eos % (Auto) 1.4 Baso % (Auto) 0.4 Immature Gran # (Auto) 0.01 Neut # (Auto) 4.62 Lymph # (Auto) 3.13 Colleton # (Auto) 0.61 H Eos # (Auto) 0.12 Baso # (Auto) 0.03 PT INR APTT PTT Ratio Sodium 138 Potassium 3.2 L Chloride 100 Carbon Dioxide 23 Anion Gap 15.0 H BUN 12 Creatinine 1.07 Est Cr Clr Drug Dosing 119.6 Est GFR ( Amer) 103.7 Est GFR (Non-Af Amer) 89.5 BUN/Creatinine Ratio 11.0 Glucose 81 Calcium 9.3 Magnesium 2.3 Total Bilirubin 1.4 H AST 26 ALT 46 Alkaline Phosphatase 53 Total Creatine Kinase 330 H CK-MB (CK-2) < 1.0 CK/CKMB % Calc TNP Troponin I 0.019 Total Protein 8.5 H Albumin 5.1 H Globulin 3.4 Albumin/Globulin Ratio 1.5 Lipase 89 06/12/19 13:01 WBC RBC Hgb Hct MCV MCH MCHC RDW Std Deviation RDW Coeff of Sondra Plt Count MPV Immature Gran % (Auto) Neut % (Auto) Lymph % (Auto) Colleton % (Auto) Eos % (Auto) Baso % (Auto) Immature Gran # (Auto) Neut # (Auto) Lymph # (Auto) Colleton # (Auto) Eos # (Auto) Baso # (Auto) PT 11.4 INR 1.1 APTT 27.6 PTT Ratio 1.0 Sodium Potassium Chloride Carbon Dioxide Anion Gap BUN Creatinine Est Cr Clr Drug Dosing Est GFR ( Amer) Est GFR (Non-Af Amer) BUN/Creatinine Ratio Glucose Calcium Magnesium Total Bilirubin AST ALT Alkaline Phosphatase Total Creatine Kinase CK-MB (CK-2) CK/CKMB % Calc Troponin I Total Protein Albumin Globulin Albumin/Globulin Ratio Lipase
[2019-06-12] MEDS ORDERED: PERFLUTREN LIPID MICROSPHERE (DEFINITY) IV ONE (15:26)
[2019-06-12 17:57] LABS: BUN Creatinine Ratio 10.9 (10-20); Calcium 8.7 mg/dl (8.5-10.1); Creatinine Clr Calc Pharmacy 143.8 ml/min; Est GFR (African American) 128.4; Est GFR (Non-African American) 110.8; Potassium 4.2 mmol/L (3.5-5.1); Troponin I 0.265 ng/ml (0-0.045)
[2019-06-12] MEDS ORDERED: LOPERAMIDE HCL 2 MG CAP PO PRN (18:07)
[2019-06-12] MEDS: METOPROLOL TARTRATE 25 MG TAB PO SCH (20:01)
[2019-06-12] MEDS: CHOLECALCIFEROL 1,000 UNITS TAB PO SCH (20:02)
[2019-06-12] MEDS: CETIRIZINE HCL 10 MG TABLET PO SCH (20:02)
[2019-06-13] MEDS: NSS + 20MEQ KCL 20 MEQ/1,000 ML BAG IV SCH ×2 (00:43→11:59)
[2019-06-13] MEDS: ALUMINUM/MAGNESIUM SUSP 72 ML, LIDOCAINE HCL VISCOUS 2% 24 ML, BARCODE IDENTIFIER 1 EA PO PRN ×3 (00:49→21:35)
[2019-06-13 05:59] LABS: Hematocrit (blood only) 38.2 % (42-52); Hemoglobin 13.4 g/dL (14.0-18.0); Mean Corpuscular Hgb Conc 35.1 g/dL (32-36); Mean Corpuscular Volume 86.4 fL (80-100); Mean Platelet Volume 10.1 fL (7.4-10.4); Platelet Count 189 K/uL (130-400); RDW Coefficient of Variation 12.4 % (11.5-14.5); RDW Standard Deviation 39.2 fL (36.4-46.3); Red Blood Count 4.42 M/uL (4.7-6.1); White Blood Count 4.67 K/uL (4.8-10.8)
[2019-06-13 06:12] LABS: Basophils # (auto) 0.04 K/uL (0-0.2); Basophils % (auto) 0.9 %; Eosinophils # (auto) 0.19 K/uL (0-0.5); Eosinophils % (auto) 4.1 %; Lymphocytes # (auto) 2.71 K/uL (1.2-3.4); Monocytes # (auto) 0.49 K/uL (0.11-0.59); Monocytes % (auto) 10.5 %; Neutrophils # (auto) 1.24 K/uL (1.4-6.5); Neutrophils % (auto) 26.5 %; RBC Morphology Unremarkable
[2019-06-13 06:20] LABS: BUN Creatinine Ratio 10.2 (10-20); Calcium 8.1 mg/dl (8.5-10.1); Creatinine Clr Calc Pharmacy 140.6 ml/min; Est GFR (African American) 126.1; Est GFR (Non-African American) 108.8; Phosphorus 2.7 mg/dl (2.5-4.9); Potassium 3.8 mmol/L (3.5-5.1)
[2019-06-13] MEDS: LEVOTHYROXINE SODIUM 125 MCG TABLET PO SCH (07:53)
[2019-06-13] MEDS: METOPROLOL TARTRATE 25 MG TAB PO SCH (07:54)
[2019-06-13] MEDS ORDERED: POTASSIUM CHLORIDE 20 MEQ TABCR PO STA (09:26)
--- NOTE | 2019-06-13 09:26 | Cardiology Progress Note ---
Date of Service June 13, 2019 Assessment & Plan (1) Atrial fibrillation with RVR: (2) Electrolyte imbalance: (3) Elevated troponin I level: (4) Hypothyroidism: Patient converted to normal sinus rhythm overnight. Will transition to Toprol-XL 25 mg daily. Mildly elevated troponins noted. Recommend CT angiogram of the chest to exclude presence of pulmonary embolus. No regional wall motion abnormalities per 2D transthoracic echocardiogram. Repeat ECG this a.m. stable and unchanged when compared to prior ECGs from 2016. If CT angiogram is unremarkable, patient may follow-up in the outpatient setting with repeat exercise stress echocardiography. Continue Toprol-XL 25 mg daily. Subjective Patient seen and examined the bedside. Converted to sinus rhythm last night. No recurrent chest pain or palpitations. Reports continued diarrhea. Requesting gastroenterology evaluation. Troponins minimally elevated. Repeat ECG performed this a.m. demonstrates sinus rhythm without ST changes or pathologic Q waves. Incomplete right bundle branch block noted which is unchanged compared to prior ECG from 2016. Review of Systems Review of Systems: All systems reviewed & are unremarkable except as noted in HPI & below Physical Exam Physical Exam: General: NAD, AAO x3, well nourished. HEENT: Normocephalic. Atraumatic. Conjunctiva pink, no scleral icterus. Neck: No carotid bruits, the carotid upstrokes are brisk. No JVD. No HJR Heart: Regular normal S-1 and S-2 no S-3 or S-4 gallop. No murmurs or rub appreciated. PMI is not displaced. No RV heave. Lungs: Clear bilateral without rales , rhonchi, or wheeze. Abdomen: Normal bowel sounds. Soft. Nontender. No masses or organomegaly. No abdominal bruits. Extremities: No clubbing, cyanosis, or edema. Pulses: radial=2/4, Dorsalis pedis =2/4, posterior tibial=2/4. Neuro: Cranial nerves grossly intact. No focal motor deficit. Results & Data Vital Signs (Past 12 Hours) Vital Signs Temp Pulse Pulse Resp BP BP Pulse Ox 06/13/19 07:43 36.4 C L 68 18 113/76 96 06/13/19 04:00 36.8 C 56 L 17 109/71 56 L 06/13/19 00:10 64 06/12/19 23:47 36.7 C 61 17 117/78 99 Laboratory Results Laboratory Results - last 24 hr 06/12/19 06/12/19 06/12/19 11:38 11:38 11:38 WBC 8.52 RBC 5.33 Hgb 16.6 Hct 46.0 MCV 86.3 MCH 31.1 MCHC 36.1 H RDW Std Deviation 38.9 RDW Coeff of Sondra 12.3 Plt Count 225 MPV 10.4 Immature Gran % (Auto) 0.1 Neut % (Auto) 54.2 Lymph % (Auto) 36.7 Mower % (Auto) 7.2 Eos % (Auto) 1.4 Baso % (Auto) 0.4 Immature Gran # (Auto) 0.01 Neut # (Auto) 4.62 Lymph # (Auto) 3.13 Mower # (Auto) 0.61 H Eos # (Auto) 0.12 Baso # (Auto) 0.03 RBC Morphology PT INR APTT PTT Ratio Sodium 138 Potassium 3.2 L Chloride 100 Carbon Dioxide 23 Anion Gap 15.0 H BUN 12 Creatinine 1.07 Est Cr Clr Drug Dosing 119.6 Est GFR ( Amer) 103.7 Est GFR (Non-Af Amer) 89.5 BUN/Creatinine Ratio 11.0 Glucose 81 Calcium 9.3 Phosphorus Magnesium 2.3 Total Bilirubin 1.4 H AST 26 ALT 46 Alkaline Phosphatase 53 Total Creatine Kinase 330 H CK-MB (CK-2) < 1.0 CK/CKMB % Calc TNP Troponin I 0.019 Total Protein 8.5 H Albumin 5.1 H Globulin 3.4 Albumin/Globulin Ratio 1.5 Lipase 89 TSH 06/12/19 06/12/19 06/12/19 13:01 17:15 23:05 WBC RBC Hgb Hct MCV MCH MCHC RDW Std Deviation RDW Coeff of Sondra Plt Count MPV Immature Gran % (Auto) Neut % (Auto) Lymph % (Auto) Mower % (Auto) Eos % (Auto) Baso % (Auto) Immature Gran # (Auto) Neut # (Auto) Lymph # (Auto) Mower # (Auto) Eos # (Auto) Baso # (Auto) RBC Morphology PT 11.4 INR 1.1 APTT 27.6 PTT Ratio 1.0 Sodium 140 Potassium 4.2 D Chloride 109 H Carbon Dioxide 23 Anion Gap 8.0 BUN 10 Creatinine 0.89 Est Cr Clr Drug Dosing 143.8 Est GFR ( Amer) 128.4 Est GFR (Non-Af Amer) 110.8 BUN/Creatinine Ratio 10.9 Glucose 98 Calcium 8.7 Phosphorus Magnesium Total Bilirubin AST ALT Alkaline Phosphatase Total Creatine Kinase CK-MB (CK-2) CK/CKMB % Calc Troponin I 0.265 H* 0.239 H* Total Protein Albumin Globulin Albumin/Globulin Ratio Lipase TSH 06/13/19 06/13/19 06/13/19 05:33 05:33 05:33 WBC 4.67 L RBC 4.42 L Hgb 13.4 L D Hct 38.2 L MCV 86.4 MCH 30.3 MCHC 35.1 RDW Std Deviation 39.2 RDW Coeff of Sondra 12.4 Plt Count 189 MPV 10.1 Immature Gran % (Auto) 0.0 Neut % (Auto) 26.5 Lymph % (Auto) 58.0 Mower % (Auto) 10.5 Eos % (Auto) 4.1 Baso % (Auto) 0.9 Immature Gran # (Auto) 0.00 Neut # (Auto) 1.24 L Lymph # (Auto) 2.71 Mower # (Auto) 0.49 Eos # (Auto) 0.19 Baso # (Auto) 0.04 RBC Morphology Unremarkable PT INR APTT PTT Ratio Sodium 140 Potassium 3.8 Chloride 109 H Carbon Dioxide 25 Anion Gap 6.0 BUN 9 Creatinine 0.91 Est Cr Clr Drug Dosing 140.6 Est GFR ( Amer) 126.1 Est GFR (Non-Af Amer) 108.8 BUN/Creatinine Ratio 10.2 Glucose 84 Calcium 8.1 L Phosphorus 2.7 Magnesium Total Bilirubin AST ALT Alkaline Phosphatase Total Creatine Kinase CK-MB (CK-2) CK/CKMB % Calc Troponin I Total Protein Albumin Globulin Albumin/Globulin Ratio Lipase TSH Pending
[2019-06-13] MEDS: METOPROLOL SUCC 25MG EXT REL TAB PO SCH (10:29)
[2019-06-13] MEDS ORDERED: OPTIRAY 320 125ml IV PRN (11:04)
[2019-06-13 11:07] LABS: iSTAT Potassium 3.5 mEq/L (3.3-5.0)
[2019-06-13 11:08] LABS: iSTAT Creatinine 0.9 mg/dl (0.6-1.3); iSTAT Hemoglobin 16.3 g/dl (14.0-18.0); iSTAT Ionized Calcium 1.13 mmol/l (1.12-1.32)
--- NOTE | 2019-06-13 11:19 | CT Scan Report ---
Study: CT angiography of the chest. HISTORY: Chest pain COMPARISON: 08/10/2006 FINDINGS: The thoracic aortogram shows no acute process. No evidence for aneurysm or dissection. Pulmonary arterial structures enhance appropriately. There are no significant filling defects. There is no significant hilar or mediastinal adenopathy. Lungs are considered clear. No focal infiltrate. Mild to moderate degenerative disc change at the ent amelia thoracic region. No evidence for compression deformity. Note is made of fatty replacement of the liver. IMPRESSION: 1. No evidence of pulmonary embolus. 2. Lungs are clear. 3. Fatty infiltration of the liver. Electronically signed by: Ignacio Langston M.D. 06/13/2019 11:18 AM
--- NOTE | 2019-06-13 16:26 | Hospitalist Progress Note ---
Date of Service June 13, 2019 Assessment & Plan (1) Atrial fibrillation with RVR: Likely secondary to acute abnormality, diarrhea Sinus rhythm, transition to metoprolol XL 25 mg daily Facility Security Officer consulted Chads VASC score 0 (2) Diarrhea: (3) Celiac disease: Per patient, his diarrhea started a few weeks ago while incarcerated, as per patient he is unable to observe strict gluten-free diet since that time Stool for C. difficile and culture sent Continue IV fluids Continue gluten-free diet GI consulted (4) Electrolyte imbalance: Secondary to ongoing diarrhea Potassium replaced (5) Hypothyroidism: TSH 1.8 Continue usual levothyroxine DVT prophylaxis SCDs CODE STATUS Full Disposition Return to correctional facility when medically stable, cleared by cardiology and GI Subjective Follow-up for atrial fibrillation, diarrhea Seen sitting up in bed, comfortable, no distress Normal sinus rhythm Denies chest pain, shortness of breath no palpitations, dizziness Still has diarrhea at least 4-5 loose bowel movements today, intermittent abdominal cramping Stools nonbloody No other symptoms Review of Systems Review of Systems: All systems reviewed & are unremarkable except as noted in HPI & below Physical Exam Physical Exam: General- oriented x 3, not in distress, speaks in sentences with no effort or accessory muscle use Eyes- anicteric Neck- no JVD Lungs- clear BS bilaterally, no crackles or wheezing Heart- normal rate, regular rhythm; no murmurs Abdomen- normal bowel sounds, nondistended, soft, mild tenderness in all quadrants Extremities- no pretibial edema, no calf tenderness Neuro- alert, oriented x 3; no gross focal neurologic deficits Skin- warm & dry Results & Data Vital Signs (Past 12 Hours) Vital Signs Temp Pulse Resp BP Pulse Ox 06/13/19 16:01 37.1 C 78 18 118/72 95 06/13/19 11:50 36.6 C 64 18 111/74 96 06/13/19 07:43 36.4 C L 68 18 113/76 96 Laboratory Results Laboratory Results - last 24 hr 06/12/19 06/12/19 06/12/19 11:36 17:15 23:05 WBC RBC Hgb POC Hgb 16.3 Hct POC Hct 48 MCV MCH MCHC RDW Std Deviation RDW Coeff of Sondra Plt Count MPV Immature Gran % (Auto) Neut % (Auto) Lymph % (Auto) Gordon % (Auto) Eos % (Auto) Baso % (Auto) Immature Gran # (Auto) Neut # (Auto) Lymph # (Auto) Gordon # (Auto) Eos # (Auto) Baso # (Auto) RBC Morphology POC Sodium 140 Sodium 140 POC Potassium 3.5 Potassium 4.2 D POC Chloride 100 L Chloride 109 H Carbon Dioxide 23 POC Total CO2 22 L Anion Gap 8.0 POC Anion Gap 22.0 POC BUN 12 BUN 10 Creatinine 0.89 POC Creatinine 0.9 Est Cr Clr Drug Dosing 143.8 Est GFR ( Amer) 128.4 Est GFR (Non-Af Amer) 110.8 BUN/Creatinine Ratio 10.9 Glucose 98 POC Glucose (other) 83 Calcium 8.7 POC Ioniz Calcium Racquel 1.13 Phosphorus Troponin I 0.265 H* 0.239 H* TSH 06/13/19 06/13/19 06/13/19 05:33 05:33 05:33 WBC 4.67 L RBC 4.42 L Hgb 13.4 L D POC Hgb Hct 38.2 L POC Hct MCV 86.4 MCH 30.3 MCHC 35.1 RDW Std Deviation 39.2 RDW Coeff of Sondra 12.4 Plt Count 189 MPV 10.1 Immature Gran % (Auto) 0.0 Neut % (Auto) 26.5 Lymph % (Auto) 58.0 Gordon % (Auto) 10.5 Eos % (Auto) 4.1 Baso % (Auto) 0.9 Immature Gran # (Auto) 0.00 Neut # (Auto) 1.24 L Lymph # (Auto) 2.71 Gordon # (Auto) 0.49 Eos # (Auto) 0.19 Baso # (Auto) 0.04 RBC Morphology Unremarkable POC Sodium Sodium 140 POC Potassium Potassium 3.8 POC Chloride Chloride 109 H Carbon Dioxide 25 POC Total CO2 Anion Gap 6.0 POC Anion Gap POC BUN BUN 9 Creatinine 0.91 POC Creatinine Est Cr Clr Drug Dosing 140.6 Est GFR ( Amer) 126.1 Est GFR (Non-Af Amer) 108.8 BUN/Creatinine Ratio 10.2 Glucose 84 POC Glucose (other) Calcium 8.1 L POC Ioniz Calcium Racquel Phosphorus 2.7 Troponin I TSH 1.800
[2019-06-13] MEDS: CETIRIZINE HCL 10 MG TABLET PO SCH (21:35)
[2019-06-13] MEDS: CHOLECALCIFEROL 1,000 UNITS TAB PO SCH (21:35)
[2019-06-13] MEDS ORDERED: LORazepam 0.5 MG TAB PO STA (21:53)
[2019-06-14] MEDS: LEVOTHYROXINE SODIUM 125 MCG TABLET PO SCH (07:21)
[2019-06-14] MEDS: METOPROLOL SUCC 25MG EXT REL TAB PO SCH (07:22)
--- NOTE | 2019-06-14 08:06 | Gastrointestinal Consultation ---
Date of Consultation June 14, 2019 Assessment & Plan (1) GERD (gastroesophageal reflux disease): Certainly this can be related to a Celiac flare. 1. BID PPI. 2. Plan for EGD later today by Dr. Smalls. Present on Admission?: Yes (2) Diarrhea: 1. Strict gluten free diet. 2. Imodium and dicyclomine. 3. We will consider colonoscopy in the next few days if no improvement on Imodium and dicyclomine. 4. Keep on a clear liquid diet today. Present on Admission?: Yes Supervising Physician Co-Signing Physician Notes I saw and evaluated the patient. He is referred to us for evaluation of diarrhea. Patient has been incarcerated for the past 3 weeks and notes worsening diarrhea he has a history of celiac disease which was identified over 10 years ago in [place]. Physical examination No obvious distress No abdominal tenderness Impression: Patient with recurrent diarrhea likely related to celiac disease. We are certainly happy to provide upper endoscopy today for further evaluation. Pending these results perhaps a colonoscopy very beneficial to screen for evidence of microscopic colitis or inflammatory bowel disease History of Present Illness Reason for Consultation: Diarrhea Requesting Physician: Quita Vanegas Attending Physician: Quita Vanegas MD History of Present Illness Mr. Erasto Stanton is a 34 yr old male pt of Patsy Reed NP with a hx of hypothyroidism, A-fib, Celiac disease, who presented on 06/12 for A-fib with RVR which spontaneously converted to sinus rhythm later that day. On arrival, he was hypokalemic at 3.2 which has since been corrected. GI is consulted for diarrhea. The diagnosis of Celiac was given to the pt by a Celiac Specialist in [place] in 2003 and verified in [facility] and at [facility]. He has followed a very strict gluten-free diet since that time. Still, he occasionally gets flares of his celiac disease causing diarrhea. On May 22, he was incarcerated at the [facility] and diarrhea began that day. Diarrhea has continued since then, passing 5-6 liquid/loose BMs/day with associated lower abdomen cramping. He was started on dicyclomine which helped only a little, initially and since then despite increasing the dosage has not had an effect. Imodium has not been helpful either. He has also gotten a very itchy rash since May 31 which he gets with Celiac flares. Additionally, he has burning and pressure in the upper epigastric area, bubbling up through the chest into the throat. This began on Wednesday. He was dx'ed with A- fib on Wednesday. The A-fib converted back spontaneously on Wednesday night but the heartburn has continued. The GI cocktail helps for an hour or so but otherwise continues fairly persistently and severely, now for 4 days. He believes his Celiac is "flared up,"due to some gluten in his foods at the assisted. They are working with him to get gluten free foods, but are not able to provide a strict gluten free diet at the facility. He has lost about 18 lbs in the past month with these symptoms. Though he has been on a PPI intermittently, he has not been on an acid reducers recently. Allergies Allergy/AdvReac Type Severity Reaction Status Date / Time gluten Allergy Unknown GLUTEN Verified 06/12/19 11:24 SENSITIVITY Home Medications Home Medications Medication Instructions Recorded Confirmed Type cetirizine 10 mg PO HS 06/12/19 06/12/19 History cholecalciferol (vitamin D3) 2,000 unit PO HS 06/12/19 06/12/19 History [Vitamin D3] levothyroxine 125 mcg PO QAM 06/12/19 06/12/19 History naproxen 375 mg PO BID PRN 06/12/19 06/12/19 History Patient History Medical History Hypothyroidism (Chronic) Atrial fibrillation Celiac disease GERD (gastroesophageal reflux disease) HLD (hyperlipidemia) Social History Preferred Language: Belizean 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: No Beliefs That Will Affect Care: None Current Living Situation: Other Feels Safe at Home: Yes Safety Concerns: Feels Safe At This Time Smoking Status: Never smoker Hx Alcohol Use: No Hx Substance Use: No Review of Systems Constitutional: + body aches (chest achiness from the a-fib) and + weight loss; no fever and no chills Eyes: no eye pain and no itchy eyes Ear, Nose, Mouth, Throat: + dizziness (with the A-fib now resolved) and + sore throat; no ear pain and no hoarseness Respiratory: + dyspnea (SOB with A-fib, now resolved.); no cough, no chest congestion and no wheezing Cardiovascular: + chest pain (resolved), + dyspnea on exertion (resolved) and + palpitations (resolved) Additional Comments: Symptoms with A-fib now all resolved Gastrointestinal: as per Subjective / HPI Genitourinary: no dysuria, no urinary frequency and no hematuria Musculoskeletal: no back pain, no joint pain and no stiffness Integumentary: + rash (HE) Neurologic: no gait abnormality, no unsteadiness and no falls Psychiatric: no current depression; mild anxiety - previously sought counselling Hematologic / Lymphatic: no easy bleeding, no easy bruising, no coagulopathy and no lymphadenopathy Physical Exam Eyes: normal visual grey by confrontation ENMT: external ear and nose normal, oropharynx normal Neck: trachea midline, no thyromegaly Respiratory: normal respiratory effort, lungs clear to auscultation Cardiovascular: RRR, no murmur, no edema Gastrointestinal (Abdomen): Inspection/Auscultation: abdomen normal to inspection; abdomen not distended Percussion/Palpation: + abdomen tender (Diffuse tenderness worse in the left mid to left lower quadrant than elsewhere) and abdomen soft Skin: no lesions and no ulcers red, sl raised rash on elbows Neurologic: PERRL, EOMI, accommodation nl, no face palsy, no dysarthria Psychiatric: A+Ox3, euthymic affect Lymphatic: no cervical or axillary lymphadenopathy Results & Data Vital Signs (Past 12 Hours) Vital Signs Temp Pulse Pulse Resp BP BP Pulse Ox 06/14/19 04:00 36.7 C 77 16 110/64 96 06/14/19 00:00 83 06/13/19 23:53 36.4 C L 71 18 111/67 96 Diagnostic Findings CTA chest: fatty liver.
[2019-06-14] MEDS ORDERED: ePHEDrine sulfate 50 MG/ML AMP IV PRN (11:30)
[2019-06-14] MEDS ORDERED: ATROPINE SULFATE 0.1 MG/ML 10ML SYR IV PRN (11:30)
--- NOTE | 2019-06-14 11:30 | Anesthesiology Consultation ---
Date of Service June 14, 2019 Assessment & Plan Chart Review Chart Review: Acceptable Risk for Surgery and Patient NOT seen in Pre Admission Testing Consults Requested none ASA ASA3 Proposed Anesthesia Anesthesia Type: MAC Risk / Benefits Reviewed With: PT / POA / Parent / Guardian, Accepts Plan and Informed Consent Obtained History Surgery Operation Date: 06/14/19 08:30 Proposed Procedures p Esophagogastroduodenoscopy Dr Slim Smalls Height/Weight Height: 6 ft Weight: 104 kg Allergies Allergy/AdvReac Type Severity Reaction Status Date / Time gluten Allergy Unknown GLUTEN Verified 06/12/19 11:24 SENSITIVITY Medications Home Medications Medication Instructions Recorded Confirmed Last Taken cetirizine 10 mg PO HS 06/12/19 06/12/19 06/11/19 cholecalciferol (vitamin D3) 2,000 unit PO HS 06/12/19 06/12/19 06/11/19 [Vitamin D3] levothyroxine 125 mcg PO QAM 06/12/19 06/12/19 06/12/19 naproxen 375 mg PO BID PRN 06/12/19 06/12/19 06/12/19 Active Medications Generic Name Dose Route Start Last Admin Trade Name Freq PRN Reason Stop Dose Admin Cetirizine HCl 10 mg 06/12/19 21:00 06/13/19 21:35 Zyrtec PO 07/12/19 20:59 10 mg HS KHADIJAH Administration Al Hydrox/Mg Hydrox/ 0 ml 06/13/19 13:26 06/13/19 21:35 Simethicone 72 ml/ Lidocaine PO 07/13/19 13:25 24 ml HCl 24 ml/ BARCODE IDENTIFIER BID PRN Administration 1 ea Dyspepsia Levothyroxine Sodium 125 mcg 06/12/19 14:24 06/14/19 07:21 Synthroid PO 07/12/19 14:23 125 mcg DAILYBB KHADIJAH Administration Loperamide HCl 2 mg 06/12/19 18:07 06/12/19 18:38 Imodium PO 07/12/19 18:06 2 mg Q4H PRN Administration Diarrhea Metoprolol Succinate 25 mg 06/13/19 09:45 06/14/19 07:22 Toprol Xl PO 07/13/19 09:44 25 mg QAM KHADIJAH Administration Vitamin D 2,000 units 06/12/19 21:00 06/13/19 21:35 Vitamin D3 PO 07/12/19 20:59 2,000 units HS KHADIJAH Administration NPO Date Last Intake of Fluids: 06/14/19 Time Last Intake of Fluids: 07:30 Date Last Intake of Solids: 06/13/19 Time Last Intake of Solids: 18:00 Past Medical History Medical History Hypothyroidism (Chronic) Atrial fibrillation Celiac disease GERD (gastroesophageal reflux disease) HLD (hyperlipidemia) Exercise / Class Metabolic Activity II 4-5 Yardwork/Stairs/Walk up hill Past Anesthesia History No Hx of Anesthesia Complications and No Family Hx of Anesthesia Complications History of PONV No Hx of PONV and No Hx of Motion Sickness Social History Smoking Status: Never smoker Hx Alcohol Use: No Hx Substance Use: No Physical Exam Vital Signs Last Vital Signs Temp 37.0 C 06/14/19 11:08 Pulse 74 06/14/19 11:08 Resp 16 06/14/19 11:08 BP 111/77 06/14/19 11:08 Pulse Ox 98 06/14/19 11:08 Constitutional + obese ENMT Mouth: no dentition abnormality Thyromental Distance: > or= 3.5 Finger Breadths Mallampati Class: II Neck normal visual inspection, trachea midline and + facial hair; neck extension not limited Respiratory normal respiratory effort Auscultation: lungs clear to auscultation bilaterally Cardiovascular Rate/Rhythm: regular rate and regular rhythm Heart Sounds: no murmur Musculoskeletal Spine: normal cervical ROM Neurologic moves all extremities Motor/Sensory: no sensory deficit Psychiatric Orientation: alert and oriented x 3 Testing Laboratory Results 06/13/19 05:33 06/13/19 05:33 PT 11.4 Seconds (9.0-12.0) 06/12/19 13:01 INR 1.1 (0.9-1.1) 06/12/19 13:01 APTT 27.6 Seconds (21.0-31.0) 06/12/19 13:01
--- NOTE | 2019-06-14 11:48 | History & Physical Bridge Note ---
Date of Service June 14, 2019 History & Physical Bridge Note I have examined the patient, reviewed the History & Physical and in the interval since the performance of the History & Physical I have noted the following changes of clinical significance: no changes noted. The patient presented with diarrhea as he has been off a gluten-free diet. Given the severity of his symptoms it is probably reasonable to repeat an upper endoscopy for staging purposes. We have discussed the risks of upper endoscopy to include bleeding, infection, pain and need for follow-up exams.
--- NOTE | 2019-06-14 12:12 | GI REPORT ---
Patient Name: Erasto Stanton Procedure Date: 06/14/2019 11:58 AM Date of : 1985 Admit Type: Inpatient Age: 34 Gender: Male Attending MD: Irving Smalls DO Procedure: Upper GI endoscopy Providers: Irving Smalls DO Referring MD: [facility] Indications: Diarrhea Medicines: Monitored Anesthesia Care Complications: No immediate complications. Estimated blood loss: Minimal. Estimated Blood Loss: Estimated blood loss was minimal. Procedure: Pre-Anesthesia Assessment: - Prior to the procedure, a History and Physical was performed, and patient medications, allergies and sensitivities were reviewed. The patient's tolerance of previous anesthesia was reviewed. - The risks and benefits of the procedure and the sedation options and risks were discussed with the patient. All questions were answered and informed consent was obtained. - Patient identification and proposed procedure were verified prior to the procedure by the physician, the nurse and the preparer. The procedure was verified in the procedure room. - Pre-procedure physical examination revealed no contraindications to sedation. - ASA Grade Assessment: III - A patient with severe systemic disease. - After reviewing the risks and benefits, the patient was deemed in satisfactory condition to undergo the procedure. - The anesthesia plan was to use monitored anesthesia care (MAC). - Immediately prior to administration of medications, the patient was re-assessed for adequacy to receive sedatives. - The heart rate, respiratory rate, oxygen saturations, blood pressure, adequacy of pulmonary ventilation, and response to care were monitored throughout the procedure. - The physical status of the patient was re-assessed after the procedure. After obtaining informed consent, the endoscope was passed under direct vision. Throughout the procedure, the patient's blood pressure, pulse, and oxygen saturations were monitored continuously. The Endoscope was introduced through the mouth, and advanced to the third part of duodenum. The upper GI endoscopy was accomplished without difficulty. The patient tolerated the procedure well. Findings: The examined esophagus was normal. The Z-line was irregular and was found 36 cm from the incisors. Biopsies were taken with a cold forceps for histology. Estimated blood loss was minimal. The entire examined stomach was normal. The examined duodenum was normal. Biopsies for histology were taken with a cold forceps for evaluation of celiac disease. Estimated blood loss was minimal. Impression: - Normal esophagus. - Z-line irregular, 36 cm from the incisors. Biopsied. - Normal stomach. - Normal examined duodenum. Biopsied. Recommendation: - [facility]. - Await pathology results. - Gluten free diet. Irving Smalls D.O. Irving Smalls, 06/14/2019 12:12:23 PM This report has been signed electronically. Note Initiated On: 06/14/2019 11:58 AM Number of Addenda: 0 I attest to the content of the Intraoperative Record and orders documented therein, exceptions below {[id number]}
--- NOTE | 2019-06-14 12:20 | Anesthesiology Progress Note ---
Date of Service June 14, 2019 Anesthesia Post Procedure Vital Signs Vital Signs: Temp Pulse Pulse Resp BP BP Pulse Ox 06/14/19 12:15 77 16 98/66 L 96 06/14/19 11:08 37.0 C 74 16 111/77 98 06/14/19 10:57 36.9 C 71 18 115/76 96 06/14/19 08:00 60 06/14/19 04:00 36.7 C 77 16 110/64 96 06/14/19 00:00 83 06/13/19 23:53 36.4 C L 71 18 111/67 96 06/13/19 19:41 36.8 C 67 18 115/75 92 06/13/19 16:01 37.1 C 78 18 118/72 95 Pain Intensity Left Chest: Pain Intensity: 5 Transfer of Care Handoff Completed per policy Notes Mental Status: alert / awake / arousable Patient Amnestic to Procedure: Yes Nausea / Vomiting: adequately controlled Pain: adequately controlled Airway Patency, RR, SpO2: stable & adequate BP & HR: stable & adequate Hydration State: stable & adequate Anesthetic Complications: no major complications apparent
[2019-06-14] MEDS ORDERED: LIDOCAINE HCL 2% 2 ML VIAL/AMP(20MG/ML) INFIL ONE (12:35)
[2019-06-14] MEDS: PROPOFOL IV EMULSION 10 MG/ML 20 ML VIAL IV ONE ×4 (12:55→14:06)
[2019-06-14] MEDS: ALUMINUM/MAGNESIUM SUSP 72 ML, LIDOCAINE HCL VISCOUS 2% 24 ML, BARCODE IDENTIFIER 1 EA PO PRN ×2 (14:26→20:35)
[2019-06-14] MEDS ORDERED: POLYETHYLENE (MIRALAX) 17 GM PACK PO SCH (16:00)
--- NOTE | 2019-06-14 16:24 | Hospitalist Progress Note ---
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 difficile toxin yet (3) Celiac disease: Per patient, his diarrhea started a few weeks ago while incarcerated, as per patient he is unable to observe strict gluten-free diet since that time Stool for C. difficile and culture sent-not yet collected Continue IV fluids Continue gluten-free diet GI consulted-appreciate input and recommendation Status post negative EGD Will have colonoscopy tomorrow (4) Electrolyte imbalance: Secondary to ongoing diarrhea Potassium replaced Corrected (5) Hypothyroidism: TSH 1.8 Continue usual levothyroxine DVT prophylaxis SCDs CODE STATUS Full Disposition Return to correctional facility when medically stable, cleared by cardiology and GI Subjective 06/14 Patient was seen and examined in telemetry unit He still complains to have diarrhea with the lower quadrants pain Stool has not been tested yet for C. difficile toxin Status post EGD without any significant finding Review of Systems Review of Systems: All systems reviewed and are unremarkable except as noted below Gastrointestinal: + abdominal pain Lower quadrants without any guarding and/or rigidity Genitourinary: no dysuria and no urinary hesitancy Physical Exam Physical Exam: No apparent distress at rest Constitutional: well developed and well nourished; no acute distress and not ill appearing Eyes: PERRL, conjunctivae normal, anicteric sclerae ENMT: external ear and nose normal, oropharynx normal Neck: trachea midline, no thyromegaly Respiratory: normal respiratory effort; no respiratory distress Auscultation: lungs clear to auscultation bilaterally Cardiovascular: Rate/Rhythm: regular rate and regular rhythm Gastrointestinal (Abdomen): Inspection/Auscultation: abdomen normal to inspection Percussion/Palpation: + abdomen tender (Lower quadrants) and abdomen soft; no guarding, abdomen not rigid and no hepatosplenomegaly Neurologic: patellar DTR's 2+ bilat, sensation intact Psychiatric: A+Ox3, euthymic affect Genitourinary: no CVA tenderness Lymphatic: no cervical or axillary lymphadenopathy Results & Data Vital Signs (Past 12 Hours) Vital Signs Temp Pulse Pulse Resp BP BP Pulse Ox 06/14/19 15:26 36.5 C 60 20 110/72 97 06/14/19 12:53 36.7 C 69 18 115/72 97 06/14/19 12:35 83 79 H 129/80 95 06/14/19 12:23 76 17 104/60 98 06/14/19 12:15 77 16 98/66 L 96 06/14/19 11:08 37.0 C 74 16 111/77 98 06/14/19 10:57 36.9 C 71 18 115/76 96 06/14/19 08:00 60 Medications Administered Current Inpatient Medications Atropine Sulfate (Atropine Sulfate) 0.5 mg IV Q1M PRN PRN Reason: PACU Use-HR<40 &/or Bradycardi Stop: 06/14/19 16:30 Cetirizine HCl (Zyrtec) 10 mg PO HS [facility] Stop: 07/12/19 20:59 Last Admin: 06/13/19 21:35 Dose: 10 mg Documented by: Al Hydrox/Mg Hydrox/Simethicone 72 ml/ Lidocaine HCl 24 ml/ BARCODE IDENTIFIER 1 ea 0 ml PO BID PRN PRN Reason: Dyspepsia Stop: 07/13/19 13:25 Last Admin: 06/14/19 14:26 Dose: 24 ml Documented by: Ephedrine Sulfate (Ephedrine Sulfate) 5 mg IV Q5M PRN PRN Reason: PACU Use Only-SBP<90 mmHg Stop: 06/14/19 16:30 Ioversol (Optiray 320 125ml) 119 ml IV ONCE PRN PRN Reason: Interaction Checking Stop: 06/17/19 11:03 Levothyroxine Sodium (Synthroid) 125 mcg PO DAILYBB [facility] Stop: 07/12/19 14:23 Last Admin: 06/14/19 07:21 Dose: 125 mcg Documented by: Loperamide HCl (Imodium) 2 mg PO Q4H PRN PRN Reason: Diarrhea Stop: 07/12/19 18:06 Last Admin: 06/12/19 18:38 Dose: 2 mg Documented by: Metoprolol Succinate (Toprol Xl) 25 mg PO QAM [facility] Stop: 07/13/19 09:44 Last Admin: 06/14/19 07:22 Dose: 25 mg Documented by: Metoprolol Tartrate (Lopressor) 5 mg IV Q6 PRN PRN Reason: Tachycardia Stop: 07/12/19 17:59 Polyethylene Glycol (Miralax Powder Packet) 238 gm PO TODAY@1600 [facility] Stop: 06/15/19 03:30 Vitamin D (Vitamin D3) 2,000 units PO [facility] Stop: 07/12/19 20:59 Last Admin: 06/13/19 21:35 Dose: 2,000 units Documented by:
[2019-06-14] MEDS: CETIRIZINE HCL 10 MG TABLET PO SCH (20:30)
[2019-06-14] MEDS: CHOLECALCIFEROL 1,000 UNITS TAB PO SCH (20:31)
[2019-06-15] MEDS: LEVOTHYROXINE SODIUM 125 MCG TABLET PO SCH (06:00)
[2019-06-15 06:53] LABS: BUN Creatinine Ratio 6.6 (10-20); Calcium 8.3 mg/dl (8.5-10.1); Creatinine Clr Calc Pharmacy 153.1 ml/min; Est GFR (African American) 131.5; Est GFR (Non-African American) 113.4; Magnesium 2.3 mg/dl (1.8-2.4); Potassium 3.5 mmol/L (3.5-5.1)
--- NOTE | 2019-06-15 08:43 | History & Physical Bridge Note ---
Date of Service June 15, 2019 History & Physical Bridge Note I have examined the patient, reviewed the History & Physical and in the interval since the performance of the History & Physical I have noted the following changes of clinical significance: no changes noted. We are planning for colonoscopy today due to significant diarrhea resulting in electrolyte disturbance. We have discussed the risks of the procedure to include bleeding, infection, perforation and need for follow-up examinations.
--- NOTE | 2019-06-15 09:26 | Anesthesiology Consultation ---
Date of Service June 15, 2019 Assessment & Plan (1) Encounter for pre-operative examination: History Surgery Operation Date: 06/14/19 08:30 Proposed Procedures p Esophagogastroduodenoscopy Dr Slim Smalls Operation Date: 06/15/19 08:30 Proposed Procedures p Colonoscopy Dr Slim Smalls Height/Weight Height: 6 ft Weight: 104 kg Allergies Allergy/AdvReac Type Severity Reaction Status Date / Time gluten Allergy Unknown GLUTEN Verified 06/12/19 11:24 SENSITIVITY Medications Home Medications Medication Instructions Recorded Confirmed Last Taken cetirizine 10 mg PO HS 06/12/19 06/12/19 06/11/19 cholecalciferol (vitamin D3) 2,000 unit PO HS 06/12/19 06/12/19 06/11/19 [Vitamin D3] levothyroxine 125 mcg PO QAM 06/12/19 06/12/19 06/12/19 naproxen 375 mg PO BID PRN 06/12/19 06/12/19 06/12/19 Active Medications Generic Name Dose Route Start Last Admin Trade Name Freq PRN Reason Stop Dose Admin Cetirizine HCl 10 mg 06/12/19 21:00 06/14/19 20:30 Zyrtec PO 07/12/19 20:59 10 mg HS KHADIJAH Administration Al Hydrox/Mg Hydrox/ 0 ml 06/13/19 13:26 06/14/19 20:35 Simethicone 72 ml/ Lidocaine PO 07/13/19 13:25 24 ml HCl 24 ml/ BARCODE IDENTIFIER BID PRN Administration 1 ea Dyspepsia Levothyroxine Sodium 125 mcg 06/12/19 14:24 06/15/19 06:00 Synthroid PO 07/12/19 14:23 125 mcg DAILYBB KHADIJAH Administration Loperamide HCl 2 mg 06/12/19 18:07 06/12/19 18:38 Imodium PO 07/12/19 18:06 2 mg Q4H PRN Administration Diarrhea Metoprolol Succinate 25 mg 06/13/19 09:45 06/14/19 07:22 Toprol Xl PO 07/13/19 09:44 25 mg QAM KHADIJAH Administration Vitamin D 2,000 units 06/12/19 21:00 06/14/19 20:31 Vitamin D3 PO 07/12/19 20:59 2,000 units HS KHADIJAH Administration NPO Date Last Intake of Fluids: 06/15/19 Time Last Intake of Fluids: 00:01 Date Last Intake of Solids: 06/13/19 Time Last Intake of Solids: 17:00 Past Medical History Medical History Hypothyroidism (Chronic) Atrial fibrillation Celiac disease GERD (gastroesophageal reflux disease) HLD (hyperlipidemia) Social History Smoking Status: Never smoker Hx Alcohol Use: No Hx Substance Use: No Physical Exam Vital Signs Last Vital Signs Temp 36.8 C 06/15/19 08:51 Pulse 73 06/15/19 08:51 Resp 17 06/15/19 08:51 BP 117/68 06/15/19 08:51 Pulse Ox 98 06/15/19 08:51 Testing Laboratory Results 06/13/19 05:33 06/15/19 05:47 PT 11.4 Seconds (9.0-12.0) 06/12/19 13:01 INR 1.1 (0.9-1.1) 06/12/19 13:01 APTT 27.6 Seconds (21.0-31.0) 06/12/19 13:01
[2019-06-15] MEDS ORDERED: LIDOCAINE HCL 2% 2 ML VIAL/AMP(20MG/ML) INFIL ONE (10:01)
[2019-06-15] MEDS ORDERED: PROPOFOL IV EMULSION 10 MG/ML 20 ML VIAL IV ONE ×2 (10:01)
--- NOTE | 2019-06-15 10:32 | GI REPORT ---
Patient Name: rEasto Stanton Procedure Date: 06/15/2019 10:01 AM Date of : 1985 Admit Type: Inpatient Age: 34 Gender: Male Attending MD: Irving Smalls DO Procedure: Colonoscopy Providers: Irving Smalls DO Referring MD: [facility] Indications: Clinically significant diarrhea of unexplained origin Medicines: Monitored Anesthesia Care Complications: No immediate complications. Estimated blood loss: Minimal. Estimated Blood Loss: Estimated blood loss was minimal. Procedure: Pre-Anesthesia Assessment: - Prior to the procedure, a History and Physical was performed, and patient medications, allergies and sensitivities were reviewed. The patient's tolerance of previous anesthesia was reviewed. - The risks and benefits of the procedure and the sedation options and risks were discussed with the patient. All questions were answered and informed consent was obtained. - Patient identification and proposed procedure were verified prior to the procedure by the physician, the nurse and the rhythmic gymnastics coach. The procedure was verified in the procedure room. - Pre-procedure physical examination revealed no contraindications to sedation. - ASA Grade Assessment: III - A patient with severe systemic disease. - After reviewing the risks and benefits, the patient was deemed in satisfactory condition to undergo the procedure. - The anesthesia plan was to use monitored anesthesia care (MAC). - Immediately prior to administration of medications, the patient was re-assessed for adequacy to receive sedatives. - The heart rate, respiratory rate, oxygen saturations, blood pressure, adequacy of pulmonary ventilation, and response to care were monitored throughout the procedure. - The physical status of the patient was re-assessed after the procedure. After I obtained informed consent, the scope was passed under direct vision. Throughout the procedure, the patient's blood pressure, pulse, and oxygen saturations were monitored continuously. The Colonoscope was introduced through the anus and advanced to the terminal ileum. The colonoscopy was performed without difficulty. The patient tolerated the procedure well. The quality of the bowel preparation was good. Findings: The perianal and digital rectal examinations were normal. Pertinent negatives include normal sphincter tone. The terminal ileum appeared normal. Normal mucosa was found in the entire colon. Fluid aspiration was performed through the scope suction channel. Sample(s) were sent for bacterial cultures, Clostridium difficile and ova and parasites. Biopsies for histology were taken with a cold forceps from the entire colon for evaluation of microscopic colitis. Estimated blood loss was minimal. Internal hemorrhoids were found during retroflexion. The hemorrhoids were mild. The exam was otherwise without abnormality. Impression: - The examined portion of the ileum was normal. - Normal mucosa in the entire examined colon. Fluid aspiration performed. Biopsied. - Internal hemorrhoids. - The examination was otherwise normal. Recommendation: - [facility]. - Await pathology results. - Repeat colonoscopy for screening purposes at age 44. - Return to GI office PRN. Irving Smalls D.O. Irving Smalls, 06/15/2019 10:32:13 AM This report has been signed electronically. Note Initiated On: 06/15/2019 10:01 AM Number of Addenda: 0 I attest to the content of the Intraoperative Record and orders documented therein, exceptions below {[id number]}
--- NOTE | 2019-06-15 10:35 | Communication Note ---
Date of Service: June 15, 2019 The patient underwent colonoscopy today. The patient's colonoscopy was normal aside from internal hemorrhoids. We did obtain stool cultures to include Gi ardia, C. difficile, stool culture and ova and parasites in addition to random biopsies of the colon. Recommendations Gluten-free diet Patient may return to assisted today he may follow-up with our office in 4 to 6 months if symptoms are persisting
--- NOTE | 2019-06-15 11:30 | Anesthesiology Progress Note ---
Date of Service June 15, 2019 Anesthesia Post Procedure Vital Signs Vital Signs: Temp Pulse Pulse Pulse Resp BP BP 06/15/19 11:00 75 16 107/73 06/15/19 10:45 65 16 97/67 L 06/15/19 10:29 78 16 96/66 L 06/15/19 08:51 36.8 C 73 17 117/68 06/15/19 07:28 36.8 C 69 18 114/72 06/15/19 04:00 36.5 C 92 H 16 105/68 06/14/19 23:56 36.5 C 73 17 113/65 06/14/19 23:20 58 L 06/14/19 19:53 36.5 C 65 18 113/75 06/14/19 15:26 36.5 C 60 20 110/72 06/14/19 12:53 36.7 C 69 18 115/72 06/14/19 12:35 83 79 H 129/80 06/14/19 12:23 76 17 104/60 06/14/19 12:15 77 16 98/66 L Pulse Ox 06/15/19 11:00 98 06/15/19 10:45 94 06/15/19 10:29 94 06/15/19 08:51 98 06/15/19 07:28 97 06/15/19 04:00 96 06/14/19 23:56 99 06/14/19 23:20 06/14/19 19:53 94 06/14/19 15:26 97 06/14/19 12:53 97 06/14/19 12:35 95 06/14/19 12:23 98 06/14/19 12:15 96 Pain Intensity Left Chest: Pain Intensity: 4 Transfer of Care Handoff Completed per policy Notes Mental Status: alert / awake / arousable and participated in evaluation Patient Amnestic to Procedure: Yes Nausea / Vomiting: adequately controlled Pain: adequately controlled Airway Patency, RR, SpO2: stable & adequate BP & HR: stable & adequate Hydration State: stable & adequate Anesthetic Complications: no major complications apparent and Pt Satisfied with anesthetic care Notes: The patient is s/p colonoscopy with Dr. Smalls. He did well during the procedure with no issues. When I went to check on him in recovery I noticed him rubbing his eyes with handcuffs on as he is incarcerated at this time. His Left eye was red and irritated. He stated it felt itchy and like he had scratched it. I informed him that he may have gotten a corneal abrasion from rubbing his eye on emergence. I have ordered him erythromycin opthalmic ointment to be used four times a day for three to five days. I informed him that most corneal abrasions heal on there own in 24-72 hours. I instructed him to seen an opthalmologist if his eye worsens or does not improve in 72 hours. He understands and agrees.
[2019-06-15] MEDS: METOPROLOL SUCC 25MG EXT REL TAB PO SCH (11:45)
[2019-06-15] MEDS ORDERED: ERYTHROMYCIN OP OINT 1 GM PKT OP SCH (13:00)
--- NOTE | 2019-06-15 15:41 | Hospitalist Progress Note ---
Date of Service June 15, 2019 Assessment & Plan (1) Atrial fibrillation with RVR: Likely secondary to acute abnormality, diarrhea Sinus rhythm, transition to metoprolol XL 25 mg daily Mar[employer] Finisher consulted,appreciate input and recommendation Chads VASC score 0 Mild elevation of troponin is tachycardia induced without any ACS Reverted to sinus rhythm and continue with beta-sarah (2) Diarrhea: Has been ongoing likely secondary to celiac disease flare Stool has been collected for C. difficile toxin yet-no C. difficile toxin (3) Celiac disease: Per patient, his diarrhea started a few weeks ago while incarcerated, as per patient he is unable to observe strict gluten-free diet since that time Stool for C. difficile and culture sent-no C. difficile toxin and no Giardia Continue IV fluids Continue gluten-free diet GI consulted-appreciate input and recommendation Status post negative EGD Will have colonoscopy tomorrow negative- (4) Electrolyte imbalance: Secondary to ongoing diarrhea Potassium replaced Corrected (5) Hypothyroidism: TSH 1.8 Continue usual levothyroxine DVT prophylaxis SCDs CODE STATUS Full Disposition Return to correctional facility when medically stable, cleared by cardiology and GI Discussed with GI Will be discharged today Discharge with medical department at [facility] and is advised to have gluten-free diet for this patient Subjective 06/14 Patient was seen and examined in telemetry unit He still complains to have diarrhea with the lower quadrants pain Stool has not been tested yet for C. difficile toxin Status post EGD without any significant finding 06/15 The patient was seen and examined in telemetry Status post colonoscopy Has been tolerating regular diet Review of Systems Review of Systems: All systems reviewed and are unremarkable except as noted below Gastrointestinal: + abdominal pain Lower quadrants without any guarding and/or rigidity Physical Exam Constitutional: well developed and well nourished; no acute distress and not ill appearing Eyes: PERRL, conjunctivae normal, anicteric sclerae ENMT: external ear and nose normal, oropharynx normal Neck: trachea midline, no thyromegaly Respiratory: normal respiratory effort; no respiratory distress Auscultation: lungs clear to auscultation bilaterally Cardiovascular: Rate/Rhythm: regular rate and regular rhythm Gastrointestinal (Abdomen): Inspection/Auscultation: abdomen normal to inspection Percussion/Palpation: + abdomen tender (Lower quadrants) and abdomen soft; no guarding, abdomen not rigid and no hepatosplenomegaly Neurologic: patellar DTR's 2+ bilat, sensation intact Psychiatric: A+Ox3, euthymic affect Genitourinary: no CVA tenderness Lymphatic: no cervical or axillary lymphadenopathy Results & Data Vital Signs (Past 12 Hours) Vital Signs Temp Pulse Pulse Resp BP BP Pulse Ox 06/15/19 15:39 37.1 C 69 20 115/78 99 06/15/19 11:00 75 16 107/73 98 06/15/19 10:45 65 16 97/67 L 94 06/15/19 10:29 78 16 96/66 L 94 06/15/19 08:51 36.8 C 73 17 117/68 98 06/15/19 07:28 36.8 C 69 18 114/72 97 06/15/19 04:00 36.5 C 92 H 16 105/68 96
[2019-06-15 22:51] LABS: Transglutaminase, Tissue IgA <1 U/ML (<4); Transglutaminase, Tissue IgG <1 U/ML (<6)
--- NOTE | 2019-06-16 08:30 | Discharge Summary ---
Date of Service June 16, 2019 Admission HPI Per Admitting Provider He is a 34-year-old male without significant past medical history except hypothyroidism and celiac disease apparently has been complaining of ongoing diarrhea for the last 1 week or so secondary to dietary discretion. He has been losing weight secondary to ongoing diarrhea and since this morning he complained to have palpitation associated with some chest tightness and minimal shortness of breath. He complained of some abdominal discomfort, but no pain and did not have any nausea and/or vomiting. He complains to have significant weight loss for the last 1 to 2 weeks. He has a history of proximal atrial fibrillation and during the last 10 years he has had 2 or 3 episodes of atrial fibrillation and all of which converted to sinus rhythm by itself. He had an echo done about 10 years ago which was unremarkable as per the patient. His celiac disease seems to be under control but recently [place] in the [place] he has been following with the diet that he supposed to be which is causing him to have ongoing diarrhea and weight loss. The ER he was noted to have low blood pressure of systolic less than 90 and a heart rate of 107. His initial troponin was negative, he was admitted to telemetry unit for continuation of care. Admission Exam Per Admitting Provider Physical Exam: No apparent distress at rest Constitutional: well developed and well nourished Eyes: PERRL, conjunctivae normal, anicteric sclerae ENMT: external ear and nose normal, oropharynx normal Neck: trachea midline, no thyromegaly Respiratory: normal respiratory effort; no respiratory distress Auscultation: lungs clear to auscultation bilaterally Cardiovascular: Rate/Rhythm: + tachycardic; + abnormal rate and + abnormal rhythm Gastrointestinal (Abdomen): Inspection/Auscultation: abdomen normal to inspection Percussion/Palpation: + abdomen tender (Mildly tender epigastrium) and abdomen soft; no guarding, abdomen not rigid and no hepatosplenomegaly Musculoskeletal: No acute arthritis in any joints Skin: Minor patch of dry skin lesions behind the elbows Neurologic: patellar DTR's 2+ bilat, sensation intact Psychiatric: A+Ox3, euthymic affect Genitourinary: no CVA tenderness Lymphatic: no cervical or axillary lymphadenopathy Principal Diagnosis A. fib with RVR-reverted to sinus rhythm, celiac disease with diarrhea- controlled Discharge Exam Constitutional well developed and well nourished; no acute distress and not ill appearing Eyes PERRL, conjunctivae normal, anicteric sclerae ENMT external ear and nose normal, oropharynx normal Neck trachea midline, no thyromegaly Respiratory normal respiratory effort; no respiratory distress Auscultation: lungs clear to auscultation bilaterally Cardiovascular Rate/Rhythm: regular rate and regular rhythm Gastrointestinal (Abdomen) Inspection/Auscultation: abdomen normal to inspection Percussion/Palpation: + abdomen tender (Lower quadrants) and abdomen soft; no guarding, abdomen not rigid and no hepatosplenomegaly Neurologic patellar DTR's 2+ bilat, sensation intact Psychiatric A+Ox3, euthymic affect Genitourinary no CVA tenderness Lymphatic no cervical or axillary lymphadenopathy Discharge Data Allergies Allergy/AdvReac Type Severity Reaction Status Date / Time gluten Allergy Unknown GLUTEN Verified 06/12/19 11:24 SENSITIVITY Consultations 06/12/19 12:18 ED Decision to Admit Stat 06/12/19 12:59 Consult Cardiology Routine 06/13/19 15:31 Consult Gastroenterology Routine Procedures Performed Operation Date: 06/14/19 08:30 Actual Procedures p EGD Biopsy Cytology - Irving Smalls Operation Date: 06/15/19 08:30 Actual Procedures p Colonoscopy Biopsy Cytology - Irving Smalls Ordered Studies 06/13/19 09:24 CT angio chest w con Urgent Hospital Course (1) Atrial fibrillation with RVR: Likely secondary to acute abnormality, diarrhea Sinus rhythm, transition to metoprolol XL 25 mg daily [employer] Analyst consulted,appreciate input and recommendation Chads VASC score 0 Mild elevation of troponin is tachycardia induced without any ACS Reverted to sinus rhythm and continue with beta-sarah (2) Diarrhea: Has been ongoing likely secondary to celiac disease flare Stool has been collected for C. difficile toxin yet-no C. difficile toxin (3) Celiac disease: Per patient, his diarrhea started a few weeks ago while incarcerated, as per patient he is unable to observe strict gluten-free diet since that time Stool for C. difficile and culture sent-no C. difficile toxin and no Giardia Continue IV fluids Continue gluten-free diet GI consulted-appreciate input and recommendation Status post negative EGD Will have colonoscopy tomorrow negative- (4) Electrolyte imbalance: Secondary to ongoing diarrhea Potassium replaced Corrected (5) Hypothyroidism: TSH 1.8 Continue usual levothyroxine DVT prophylaxis SCDs CODE STATUS Full Disposition Return to correctional facility when medically stable, cleared by cardiology and GI Discussed with GI Will be discharged today Discharge with medical department at [facility] and is advised to have gluten-free diet for this patient Total Time Total Time Spent Total Time Spent (In Minutes): 35 minutes Total Time Includes: Examination of the Patient, Discharge Planning, Medication Reconciliation and Communication With Other Providers Discharge Plan Discharge Items Patient Disposition: [facility] Facility Reason For Visit: AF WITH RVR,ELECTROLYTES IMBALNCE Discharge Diagnosis: A. fib with RVR-reverted to sinus rhythm, celiac disease with diarrhea-controlled Condition: Good Discharge Goals: Decrease discomfort, Improve function and Increase independence Activity: Resume your previous activity Non-emergency contact: Primary Care Provider Call non-emergency contact if: you have any medication questions Follow-up/Referrals: [facility] [Primary Care Provider] - Diet: Gluten Free Addtl Provider Instructions: Has to have gluten-free diet. Sign out given to medical department at the facility Prescriptions: New metoprolol succinate 25 mg Tablet Extended Release 24 Hr 25 mg PO QAM 30 Days Qty: 30 RF: 0 Continued cetirizine 10 mg Tablet 10 mg PO HS RF: 0 levothyroxine 125 mcg Tablet 125 mcg PO QAM RF: 0 naproxen 375 mg Tablet,Delayed Release (Dr/Ec) 375 mg PO BID PRN (Reason: Pain) RF: 0 cholecalciferol (vitamin D3) [Vitamin D3] 2,000 unit Tablet 2,000 unit PO HS RF: 0 Stand-Alone Forms: [facility] Discharge Orders: Discharge Order (Routine); Ordered 06/15/19 Ordered By: Quita Vanegas Admission Data Admit Date/Time: 06/12/19 12:55 Attending Provider: Quita Vanegas Admit Provider: Norbert Huggins Primary Care Provider: [facility] Other Providers: Quita Vanegas ; Ang Garcia ; Sean Wade ; Collin Antunez ; Charlie Tian ; Leandro Khalil ; Ignacio Hurtado ; Regine Esqueda ; Marley Monsivais ; Irving Smalls ; Norbert Huggins Service: Telemetry Other Interventions: Discharge Summary Assessment (RN) Last Done: 06/15/19 16:41 DC Date/Time DO NOT enter until pt leaves facility: 06/15/19 17:25
== END 2019-06-15 17:25 | DRG 310 ==
LOC: ED 11:10 → 2S 12:55 → SUATTDRO 12:55 → 2S 13:53
DX: R19.7 Diarrhea, unspecified; E87.8 Other disorders of electrolyte and fluid balance, not elsewhere classified; K90.0 Celiac disease; I48.0 Paroxysmal atrial fibrillation; K21.9 Gastro-esophageal reflux disease without esophagitis; Z79.899 Other long term (current) drug therapy; X58.XXXA Exposure to other specified factors, initial encounter; S05.02XA Injury of conjunctiva and corneal abrasion without foreign body, left eye, initial encounter; E03.9 Hypothyroidism, unspecified; R79.89 Other specified abnormal findings of blood chemistry